=== PATIENT | male | born 1985 | race Caucasian/White ===

== ENCOUNTER → 2016-06-06 | Outpatient (CLI) | payer OTHER ==
[~2016-06-06] MED LIST: BENA25TA4 PO; COGE1INJ PO; DIVA500T9 PO; FLUO20TA PO; HALD5INJ2 PO; HALO5TA PO; HYDR10EL PO; INVE234I IM; KLON0.5T PO; KLON1TAB PO; LAMI25TA PO; NICO21PAT TD; RISP1TAB3 PO; RISP2TAB30 PO; SERO1TAB PO; TRAZ50TA2 PO; TRAZO50TA PO; WELL100T2 PO; ZYPR5TAB2 PO
--- NOTE | 2016-06-06 14:38 | PFTRPT ---
PULMONARY FUNCTION REPORT ORDERING PROVIDER: RITA Johnson DATE OF SERVICE: 06/06/16 SPIROMETRY:Excellent technical quality. The forced vital capacity is normal. The FEV1 is generally in proportion. The obstructive index is, therefore, normal. FLOW VOLUME LOOP: The expiratory limb of the flow volume loop is normal. LUNG VOLUMES: The total lung capacity is normal. The residual volume is in proportion. DIFFUSION CAPACITY: The diffusion capacity is normal. HEMOGLOBIN: No hemoglobin is available. AIRWAY MECHANICS: Airways resistance and conductance are normal. IMPRESSION: Normal study. MTDD
--- NOTE | 2016-06-06 15:28 | REP ---
CHEST: HISTORY: Cough. History of tobacco abuse. COMPARISON: 06/18/2009. FINDINGS: The superior mediastinal structures are midline. The cardiac silhouette is unremarkable in size, shape and position. The diaphragmatic surfaces of the lungs are regular and the costophrenic angles are clear. The pulmonary hernández are clear. The imaged osseous structures are intact. IMPRESSION: There is no acute cardiopulmonary disease. Signed by Chaz Alegria DO 06/06/2016 04:53 P
== END ==
LOC: M CARPUL 14:02
PROVIDERS: ATTEND Nurse Practitioner Family
DX: R05 Cough (principal); R06.02 Shortness of breath

== ENCOUNTER → 2016-06-08 | Outpatient (REF) | payer OTHER ==
[2016-06-08 12:50] LABS: ALBUMIN 3.8 GM/DL (3.2-5.2); ALBUMIN/GLOBULIN RATIO 1.31 (1.00-1.93); ALKALINE PHOSPHATASE 68 U/L (45-117); ALT/SGPT 25 U/L (12-78); ANION GAP 10 MEQ/L (8-16); AST/SGOT 19 U/L (15-37); BILIRUBIN,TOTAL 0.2 MG/DL (0.2-1.0); BLOOD UREA NITROGEN 14 MG/DL (7-18); CALCIUM LEVEL 9.2 MG/DL (8.5-10.1); CARBON DIOXIDE LEVEL 25 MEQ/L (21-32); CHLORIDE LEVEL 106 MEQ/L (98-107); CHOLESTEROL LEVEL 161 MG/DL (<200); CREATININE FOR GFR 0.98 MG/DL (0.70-1.30); GLOMERULAR FILTRATION RATE > 60.0 (>60); GLUCOSE, FASTING 94 MG/DL (70-105); POTASSIUM SERUM 4.1 MEQ/L (3.5-5.1); SODIUM LEVEL 141 MEQ/L (136-145); TOTAL PROTEIN 6.7 GM/DL (6.4-8.2); TRIGLYCERIDES LEVEL 263 MG/DL (<150)
== END ==
LOC: M LAB REF 12:05
PROVIDERS: ATTEND Nurse Practitioner Family
DX: Z13.29 Encounter for screening for other suspected endocrine disorder (principal); Z13.220 Encounter for screening for lipoid disorders; F41.8 Other specified anxiety disorders

== ENCOUNTER 2016-06-27 03:51 | Emergency (ER) | payer OTHER ==
[~2016-06-27] VITALS: Ht 172.7 cm; Wt 97.5 kg
[2016-06-27 04:06] VITALS: BP 144/95
[2016-06-27] MEDS ORDERED: FLUP10TA PO (04:13)
[2016-06-27] MEDS ORDERED: PROP1TAB29 PO (04:14)
[2016-06-27] MEDS ORDERED: MIRT30TA3 PO (04:15)
[2016-06-27] MEDS ORDERED: GABA-283 PO (04:16)
[2016-06-27] MEDS ORDERED: SERO400T PO (04:18)
== END 2016-06-27 06:00 | disposition left against medical advice (07) ==
LOC: EDBD 03:51 → M ED 05:47
DX: Z53.21 Procedure and treatment not carried out due to patient leaving prior to being seen by health care provider (principal)

== ENCOUNTER 2016-06-27 13:36 | Emergency (ER) | payer OTHER ==
[~2016-06-27] VITALS: Ht 172.7 cm; Wt 97.5 kg
[2016-06-27 13:36] VITALS: BP 135/85
[~2016-06-27 13:36] MED LIST changes: +FLUP10TA PO; +GABA-283 PO; +MIRT30TA3 PO; +PROP1TAB29 PO; +SERO400T PO
== END 2016-06-27 14:27 | disposition left against medical advice (07) ==
LOC: M ED 14:17
DX: Z53.21 Procedure and treatment not carried out due to patient leaving prior to being seen by health care provider (principal)

== ENCOUNTER 2016-06-28 17:34 | Emergency (ER) | payer OTHER ==
[~2016-06-28] VITALS: Ht 172.7 cm; Wt 96.6 kg
[2016-06-28 17:35] VITALS: BP 137/89
[2016-07-01 14:16] LABS: Lyme Disease IgG/IgM Antibodie <0.91 ISR (0.00-0.90); Lyme Disease IgM Ab Quantitati <0.80 index (0.00-0.79)
== END 2016-06-28 18:38 | disposition home or self-care (01) ==
LOC: M ED 18:16
DX: R20.2 Paresthesia of skin (principal); F25.9 Schizoaffective disorder, unspecified; F33.9 Major depressive disorder, recurrent, unspecified; F17.210 Nicotine dependence, cigarettes, uncomplicated; Z79.899 Other long term (current) drug therapy

== ENCOUNTER 2016-10-25 16:28 | Emergency (ER) | payer OTHER ==
[~2016-10-25] VITALS: Ht 172.7 cm; Wt 95.4 kg
[~2016-10-25 16:28] MED LIST changes: -RISP2TAB30 PO; +RISP2TAB32 PO
[2016-10-25 16:29] VITALS: BP 115/82
[2016-10-25] MEDS ORDERED: ATIV2TAB PO (16:44)
[2016-10-25] MEDS ORDERED: LORazepam 2 MG TAB PO STA (17:33)
[2016-10-25 18:33] LABS: BASO % 0.5 % (0.0-1.0); EOS # 0.2 K/mm3 (0.0-0.50); EOS % 3.1 % (0.0-3.0); LARGE UNSTAINED CELL # 0.1 K/mm3 (0.0-0.4); LARGE UNSTAINED CELL % 1.2 % (0.0-4.0); LYMPH # 1.8 K/mm3 (1.5-6.5); MEAN CORPUSCULAR HEMOGLOBIN 31.5 pg (27.0-33.0); MEAN CORPUSCULAR HGB CONC 34.9 g/dl (32.0-36.5); MEAN CORPUSCULAR VOLUME 90.4 fl (80.0-96.0); MONO # 0.5 K/mm3 (0.0-0.8); NEUTROPHILS # 5.2 K/mm3 (1.8-7.7); NEUTROPHILS % 67.2 % (36.0-66.0); PLATELET COUNT, AUTOMATED 253 k/mm3 (150-450); RED CELL DISTRIBUTION WIDTH 12.4 % (11.5-14.5); WHITE BLOOD COUNT 7.8 K/mm3 (4.0-10.0)
[2016-10-25 18:53] LABS: ANION GAP 8 MEQ/L (8-16); BLOOD UREA NITROGEN 13 MG/DL (7-18); CALCIUM LEVEL 8.6 MG/DL (8.5-10.1); CARBON DIOXIDE LEVEL 25 MEQ/L (21-32); CHLORIDE LEVEL 109 MEQ/L (98-107); GLOMERULAR FILTRATION RATE > 60.0 (>60); GLUCOSE, FASTING 100 MG/DL (70-105); MAGNESIUM LEVEL 2.1 MG/DL (1.8-2.4); POTASSIUM SERUM 3.8 MEQ/L (3.5-5.1); SODIUM LEVEL 142 MEQ/L (136-145)
--- NOTE | 2016-10-25 19:07 | REP ---
CHEST PA AND LATERAL: 10/25/2016. Clinical history: Left-sided chest pain. Comparison: 06/06/2016. Findings: Lungs are well inflated without infiltrate, effusion, atelectasis or mass. No lateral pleural thickening apical scarring or pneumothorax. The heart, mediastinal and hilar contours are normal. Bones are grossly unremarkable. No free air. Impression: 1. No acute cardiopulmonary change. Signed by Saul Cam MD 10/26/2016 04:49 P
--- NOTE | 2016-10-27 09:02 | ECGEPIP ---
Stationary ECG Study [facility] - ED Test Date: 2016-10-25 Pat Name: ROSALEE GIRALDO Department: Room: - Gender: M Dampener: claritza : 1985 Requested By: BATSHEVA DIAZ PA-C. Order Number: [id number] Reading MD: Jessa Michaels Measurements Intervals [place] Rate: 102 P: 36 [place]: 148 QRS: 6 QRSD: 99 T: 31 QT: 359 QTc: 469 Interpretive Statements SINUS TACHYCARDIA NONSPECIFIC T-WAVE ABNORMALITY ABNORMAL RHYTHM ECG NO PRIOR FOR COMPARISON Electronically Signed On 10-27-2016 9:02:19 EDT by Jessa Michaels
== END 2016-10-25 18:52 | disposition left against medical advice (07) ==
LOC: M ED 16:28
DX: R07.9 Chest pain, unspecified (principal); R00.0 Tachycardia, unspecified; R94.31 Abnormal electrocardiogram [ECG] [EKG]; K21.9 Gastro-esophageal reflux disease without esophagitis; F41.9 Anxiety disorder, unspecified; F17.200 Nicotine dependence, unspecified, uncomplicated; Z79.899 Other long term (current) drug therapy; Z53.21 Procedure and treatment not carried out due to patient leaving prior to being seen by health care provider

== ENCOUNTER 2017-11-20 14:34 | Emergency (ER) | payer MEDICARE, SELFPAY, OTHER ==
[2017-11-20 16:01] LABS: BASO % 0.5 % (0.0-1.0); EOS # 0.3 10^3/uL (0.0-0.50); EOS % 3.1 % (0.0-3.0); HEMATOCRIT 41.3 % (42.0-52.0); IMMATURE GRANULOCYTE % 0.2 % (0-3.0); LYMPH # 2.1 10^3/uL (1.5-4.5); LYMPH % 25.5 % (24.0-44.0); MEAN CORPUSCULAR HEMOGLOBIN 30.8 pg (27.0-33.0); MEAN CORPUSCULAR HGB CONC 33.9 g/dl (32.0-36.5); MEAN CORPUSCULAR VOLUME 90.8 fl (80.0-96.0); MONO # 0.6 10^3/uL (0.0-0.8); MONO % 7.7 % (0.0-5.0); NEUTROPHILS # 5.3 10^3/uL (1.8-7.7); PLATELET COUNT, AUTOMATED 272 10^3/uL (150-450); RED BLOOD COUNT 4.55 10^6/uL (4.30-6.10); RED CELL DISTRIBUTION WIDTH 12.5 % (11.5-14.5); WHITE BLOOD COUNT 8.3 10^3/uL (4.0-10.0)
[2017-11-20 16:12] LABS: PROTHROMBIN TIME 14.3 SECONDS (12.1-14.4)
[2017-11-20 16:34] LABS: ANION GAP 8 MEQ/L (8-16); BLOOD UREA NITROGEN 15 MG/DL (7-18); CALCIUM LEVEL 9.3 MG/DL (8.5-10.1); CARBON DIOXIDE LEVEL 28 MEQ/L (21-32); CHLORIDE LEVEL 104 MEQ/L (98-107); CPK CREATINE PHOSPHOKINASE 170 U/L (39-308); CREATININE FOR GFR 0.96 MG/DL (0.70-1.30); GLOMERULAR FILTRATION RATE > 60.0 (>60); GLUCOSE, FASTING 84 MG/DL (70-100); MB/CK RELATIVE INDEX 0.65 (< OR =4); POTASSIUM SERUM 3.8 MEQ/L (3.5-5.1); SODIUM LEVEL 140 MEQ/L (136-145); TROPONIN I < 0.02 NG/ML (< 0.10)
[2017-11-20 16:47] LABS: D-DIMER QUANT 267.4 ng/ml (<500)
[2017-11-20 16:53] LABS: FREE T4 1.06 NG/DL (0.76-1.46)
[2017-11-20 19:23] LABS: TROPONIN I < 0.02 NG/ML (< 0.10)
== END 2017-11-20 20:10 | disposition home or self-care (01) ==
LOC: M ED 14:34
DX: R07.89 Other chest pain (principal); F41.9 Anxiety disorder, unspecified; R00.1 Bradycardia, unspecified; R94.6 Abnormal results of thyroid function studies; F90.9 Attention-deficit hyperactivity disorder, unspecified type; F12.10 Cannabis abuse, uncomplicated; Z82.49 Family history of ischemic heart disease and other diseases of the circulatory system; Z79.899 Other long term (current) drug therapy
CPT/HCPCS: 71046

== ENCOUNTER → 2017-11-30 | Outpatient (REF) | payer OTHER ==
[2017-11-30 13:39] LABS: CHOLESTEROL LEVEL 164 MG/DL (<200); CHOLESTEROL RISK RATIO 3.416 (<5); HDL CHOLESTEROL 48 MG/DL (>40); LDL CHOLESTEROL 83 MG/DL (<100); NON-HDL-C 116 MG/DL; TRIGLYCERIDES LEVEL 166 MG/DL (<150)
== END ==
LOC: M LAB REF 12:47
DX: Z13.220 Encounter for screening for lipoid disorders (principal)
CPT/HCPCS: 80061

== ENCOUNTER 2018-03-24 17:09 | Emergency (ER) | payer MEDICAID, OTHER ==
[~2018-03-24] VITALS: Ht 170.2 cm; Wt 95.5 kg
[~2018-03-24 17:09] MED LIST changes: +ATIV2TAB PO; +CONC27TA4; -GABA-283 PO; +GABA-845 PO; +HYDR50TA70; -PROP1TAB29 PO; +PROP20TA72 PO
[2018-03-24] MEDS ORDERED: CLON1TAB8 (17:16)
[2018-03-24] MEDS ORDERED: FLUV100T2 (17:16)
[2018-03-24] MEDS ORDERED: RISP4TAB2 PO (17:16)
[2018-03-24 19:11] LABS: BASO # 0.1 10^3/uL (0.0-0.2); BASO % 0.5 % (0.0-1.0); EOS # 0.5 10^3/uL (0.0-0.50); EOS % 3.7 % (0.0-3.0); HEMATOCRIT 40.6 % (42.0-52.0); HEMOGLOBIN 13.5 g/dl (13.5-17.5); LYMPH # 2.5 10^3/uL (1.5-4.5); LYMPH % 20.6 % (24.0-44.0); MEAN CORPUSCULAR HEMOGLOBIN 29.8 pg (27.0-33.0); MEAN CORPUSCULAR HGB CONC 33.3 g/dl (32.0-36.5); MEAN CORPUSCULAR VOLUME 89.6 fl (80.0-96.0); MONO # 0.9 10^3/uL (0.0-0.8); MONO % 6.9 % (0.0-5.0); NEUTROPHILS # 8.3 10^3/uL (1.8-7.7); NEUTROPHILS % 67.7 % (36.0-66.0); PLATELET COUNT, AUTOMATED 245 10^3/uL (150-450); RED BLOOD COUNT 4.53 10^6/uL (4.30-6.10); WHITE BLOOD COUNT 12.3 10^3/uL (4.0-10.0)
--- NOTE | 2018-03-24 19:24 | REP ---
Clinical: Left chest numbness. Comparison: 11/20/2017 . Technique: PA and lateral. Findings: The mediastinum and cardiac silhouette are normal. The lung hernández are clear and without acute consolidation, effusion, or pneumothorax. The skeletal structures are intact and normal. Impression: 1. No acute cardiopulmonary process. Electronically Signed by Sohan Drew MD 03/24/2018 07:16 P
[2018-03-24 19:39] LABS: BLOOD UREA NITROGEN 11 MG/DL (7-18); CALCIUM LEVEL 8.7 MG/DL (8.5-10.1); CARBON DIOXIDE LEVEL 27 MEQ/L (21-32); CHLORIDE LEVEL 106 MEQ/L (98-107); CPK CREATINE PHOSPHOKINASE 170 U/L (39-308); CREATININE FOR GFR 1.03 MG/DL (0.70-1.30); GLOMERULAR FILTRATION RATE > 60.0 (>60); GLUCOSE, FASTING 84 MG/DL (70-100); MB/CK RELATIVE INDEX 0.71 (< OR =4); POTASSIUM SERUM 3.8 MEQ/L (3.5-5.1); SODIUM LEVEL 141 MEQ/L (136-145); TROPONIN I < 0.02 NG/ML (< 0.10)
[2018-03-24 20:05] VITALS: BP 135/87
--- NOTE | 2018-03-25 09:25 | ECGEPIP ---
Stationary ECG Study [facility] - ED Test Date: 2018-03-24 Pat Name: ROSALEE GIRALDO Department: Room: - Gender: M Credit Advisor: [facility] : 1985 Requested By: ANJELICA Cormier PA-C Order Number: [id number] Reading MD: Jessa Michaels Measurements Intervals [place] Rate: 105 P: 44 [place]: 173 QRS: -11 QRSD: 104 T: 15 QT: 363 QTc: 480 Interpretive Statements SINUS TACHYCARDIA ABNORMAL RHYTHM ECG NSTTW ABNORMALITY INCREASED RATE 11/20/17 Electronically Signed On 03-25-2018 9:24:54 EST by Jessa Michaels
[2018-03-27 09:57] LABS: VITAMIN B12 LEVEL 352 PG/ML (232-1245)
== END 2018-03-24 20:08 | disposition home or self-care (01) ==
LOC: M ED 17:09
DX: R20.9 Unspecified disturbances of skin sensation (principal); R00.0 Tachycardia, unspecified; F31.9 Bipolar disorder, unspecified; F25.9 Schizoaffective disorder, unspecified; Z77.098 Contact with and (suspected) exposure to other hazardous, chiefly nonmedicinal, chemicals; Z79.899 Other long term (current) drug therapy

== ENCOUNTER 2018-04-17 19:06 | Emergency (ER) | payer OTHER ==
[~2018-04-17] VITALS: Ht 170.2 cm; Wt 95.5 kg
[~2018-04-17 19:06] MED LIST changes: +CLON1TAB8; +FLUV100T2; +RISP4TAB2 PO
[2018-04-17] MEDS ORDERED: ONDANSETRON 4MG/2ML VIAL (J2405) As Ordered ONE (19:26)
[2018-04-17 20:30] VITALS: BP 118/69
== END 2018-04-17 20:45 | disposition home or self-care (01) ==
LOC: M ED 19:06
DX: F10.120 Alcohol abuse with intoxication, uncomplicated (principal); F19.10 Other psychoactive substance abuse, uncomplicated; F25.9 Schizoaffective disorder, unspecified; Z79.899 Other long term (current) drug therapy

== ENCOUNTER 2018-08-12 07:09 | Emergency (ER) | payer OTHER ==
[~2018-08-12] VITALS: Ht 170.2 cm; Wt 97.7 kg
[~2018-08-12 07:09] MED LIST changes: +NICO21DI3 TD; -NICO21PAT TD; +TRAZ1TAB6 PO; -TRAZO50TA PO
[2018-08-12] MEDS ORDERED: ANAF75CA PO (07:25)
[2018-08-12] MEDS ORDERED: BRONCHW PO (07:25)
[2018-08-12] MEDS ORDERED: LORA2CON5 PO (07:25)
[2018-08-12] MEDS ORDERED: LOXA50CA PO (07:25)
[2018-08-12] MEDS ORDERED: FISH1000 PO (07:25)
[2018-08-12] MEDS ORDERED: TEMA30CA PO (07:25)
[2018-08-12] MEDS ORDERED: ANAF50CA PO ×2 (07:25)
[2018-08-12] MEDS ORDERED: NAPROXEN 250 MG TAB PO ONE (08:30)
[2018-08-12] MEDS ORDERED: NAPR-837 PO (08:37)
[2018-08-12 08:47] VITALS: BP 130/88
== END 2018-08-12 08:49 | disposition home or self-care (01) ==
LOC: M ED 07:09 → EDBD 07:09 → M ED 08:49
DX: R20.2 Paresthesia of skin (principal); Z72.0 Tobacco use; Z79.899 Other long term (current) drug therapy

== ENCOUNTER → 2018-11-24 | Outpatient (CLI) | payer OTHER ==
[~2018-11-24] MED LIST changes: +ANAF50CA PO; +ANAF75CA PO; +BRONCHW PO; +FISH1000 PO; +LORA2CON5 PO; +LOXA50CA PO; +NAPR-837 PO; +TEMA30CA PO
[2018-11-24 10:19] LABS: BASO # 0.1 10^3/uL (0.0-0.2); BASO % 0.7 % (0.0-1.0); EOS # 0.4 10^3/uL (0.0-0.5); EOS % 3.7 % (0.0-3.0); HEMATOCRIT 42.8 % (42.0-52.0); HEMOGLOBIN 14.5 g/dl (13.5-17.5); LYMPH # 2.1 10^3/uL (1.5-5.0); LYMPH % 19.5 % (24.0-44.0); MEAN CORPUSCULAR HGB CONC 33.9 g/dl (32.0-36.5); MEAN CORPUSCULAR VOLUME 94.5 fl (80.0-96.0); MONO # 0.9 10^3/uL (0.0-0.8); MONO % 8.1 % (0.0-5.0); NEUTROPHILS # 7.1 10^3/uL (1.5-8.5); NEUTROPHILS % 67.2 % (36.0-66.0); PLATELET COUNT, AUTOMATED 281 10^3/uL (150-450); RED BLOOD COUNT 4.53 10^6/uL (4.30-6.10); WHITE BLOOD COUNT 10.5 10^3/uL (4.0-10.0)
[2018-11-24 10:54] LABS: ALBUMIN 4.2 GM/DL (3.2-5.2); ALT/SGPT 68 U/L (12-78); BILIRUBIN,TOTAL 0.4 MG/DL (0.2-1.0); BLOOD UREA NITROGEN 14 MG/DL (7-18); CALCIUM LEVEL 9.5 MG/DL (8.5-10.1); CARBON DIOXIDE LEVEL 27 MEQ/L (21-32); CHLORIDE LEVEL 101 MEQ/L (98-107); CHOLESTEROL LEVEL 188 MG/DL (<200); CHOLESTEROL RISK RATIO 3.686 (<5); GLOMERULAR FILTRATION RATE > 60.0 (>60); GLUCOSE, FASTING 84 MG/DL (70-100); HDL CHOLESTEROL 51 MG/DL (>40); LDL CHOLESTEROL 91 MG/DL (<100); NON-HDL-C 137 MG/DL; POTASSIUM SERUM 4.2 MEQ/L (3.5-5.1); SODIUM LEVEL 136 MEQ/L (136-145); TOTAL PROTEIN 7.7 GM/DL (6.4-8.2); TRIGLYCERIDES LEVEL 230 MG/DL (<150)
[2018-11-24 10:58] LABS: HEMOGLOBIN A1c 5.4 %
[2018-11-30 13:07] LABS: CLOMIPRAMINE 238 ng/mL (70-200); LORAZEPAM (ATIVAN) LEVEL 48.3 ng/mL (50.0-240.0); NORCLOMIPRAMINE 152 ng/mL (150-300); TOTAL (CLO+NORCLO) 390 ng/mL (220-500)
== END ==
LOC: M LAB 09:11
PROVIDERS: ATTEND Nurse Practitioner Psychiatric/Mental Health
DX: F25.0 Schizoaffective disorder, bipolar type (principal); F42.2 Mixed obsessional thoughts and acts; Z91.14 Patient's other noncompliance with medication regimen; Z79.899 Other long term (current) drug therapy; F12.10 Cannabis abuse, uncomplicated
CPT/HCPCS: 36415; 80053; 80061; 83036; 84443; 85025; G0480

== ENCOUNTER → 2018-12-26 | Outpatient (REF) | payer OTHER ==
[2018-12-26 19:42] LABS: HIV 1&2 SCREEN CENTAUR NEGATIVE (NEGATIVE)
[2018-12-28 10:21] LABS: HEPATITIS A ANTIBODY IGM NEGATIVE (NEGATIVE); HEPATITIS B CORE ANTIBODY IGM NEGATIVE (NEGATIVE); HEPATITIS B SURFACE ANTIGEN NEGATIVE (NEGATIVE); HEPATITIS C VIRUS ABY INDEX 0.1 INDEX (<0.8)
[2018-12-29 00:11] LABS: HSV IgM TYPES 1&2 <0.91 Ratio (0.00-0.90); HSV TYPE II IgG SPECIFIC <0.91 index (0.00-0.90)
== END ==
LOC: M LAB REF 16:23
PROVIDERS: ATTEND Family Medicine
DX: Z13.228 Encounter for screening for other metabolic disorders (principal); F10.120 Alcohol abuse with intoxication, uncomplicated; Z11.3 Encounter for screening for infections with a predominantly sexual mode of transmission

== ENCOUNTER 2020-02-16 13:25 | Emergency (ER) | payer OTHER ==
[~2020-02-16] VITALS: Ht 170.2 cm; Wt 104.9 kg
[~2020-02-16 13:25] MED LIST changes: -FLUP10TA PO; +FLUP10TA11 PO; +RISP-11 PO; -RISP4TAB2 PO
[2020-02-16 14:36] LABS: BASO % 0.5 % (0.0-1.0); EOS # 0.4 10^3/uL (0.0-0.5); EOS % 5.4 % (0.0-3.0); HEMATOCRIT 42.4 % (42.0-52.0); LYMPH # 1.6 10^3/uL (1.5-5.0); LYMPH % 20.3 % (24.0-44.0); MONO # 0.6 10^3/uL (0.0-0.8); MONO % 8.2 % (0.0-5.0); NEUTROPHILS # 5.1 10^3/uL (1.5-8.5); NEUTROPHILS % 65.3 % (36.0-66.0); PLATELET COUNT, AUTOMATED 267 10^3/uL (150-450); RED BLOOD COUNT 4.66 10^6/uL (4.30-6.10); WHITE BLOOD COUNT 7.8 10^3/uL (4.0-10.0)
[2020-02-16 15:06] LABS: ALBUMIN 4.3 GM/DL (3.2-5.2); ALT/SGPT 74 U/L (12-78); BILIRUBIN,DIRECT 0.2 MG/DL (0.0-0.2); BILIRUBIN,TOTAL 0.4 MG/DL (0.2-1.0); BLOOD UREA NITROGEN 13 MG/DL (7-18); CALCIUM LEVEL 9.8 MG/DL (8.5-10.1); CARBON DIOXIDE LEVEL 27 MEQ/L (21-32); CHLORIDE LEVEL 103 MEQ/L (98-107); GLOMERULAR FILTRATION RATE > 60.0 (>60); GLUCOSE, FASTING 99 MG/DL (70-100); MAGNESIUM LEVEL 2.1 MG/DL (1.8-2.4); POTASSIUM SERUM 3.9 MEQ/L (3.5-5.1); SODIUM LEVEL 139 MEQ/L (136-145); TOTAL PROTEIN 7.9 GM/DL (6.4-8.2)
--- NOTE | 2020-02-16 15:38 | REP ---
INDICATION: numbness left face/shoulder COMPARISON: 04/18/2013 TECHNIQUE: Axial noncontrast images from the skull base to the vertex with coronal reformations. This CT examination was performed using the following dose reduction techniques: Automated exposure control, adjustment of mA and/or kv according to the patient's size, and use of iterative reconstruction technique. FINDINGS: The ventricles, sulci, and cisterns are normal in position and appearance. Oliver-white differentiation is maintained. No acute intracranial hemorrhage, mass/mass effect, pathology or trauma/injury. No evidence for acute infarction. No extra-axial fluid collection. Calvarium is intact. Paranasal sinuses and mastoid air cells are clear. IMPRESSION: Normal noncontrast head CT. No evidence for acute intracranial pathology or trauma/injury. <Electronically signed by Sohan Drew > 02/16/20 [id number]
[2020-02-16 16:26] VITALS: BP 132/83
--- NOTE | 2020-02-16 19:05 | ECGEPIP ---
[facility] - ED Test Date: 2020-02-16 Pat Name: ROSALEE GIRALDO Department: Room: - Gender: Male Drum Tender: faustino : 1985 Requested By: BATSHEVA DIAZ PA-C. Order Number: [id number] Reading MD: Jessa Michaels Measurements Intervals [place] Rate: 59 P: 36 [place]: 147 QRS: 3 QRSD: 100 T: -2 QT: 424 QTc: 423 Interpretive Statements SINUS BRADYCARDIA WITH MARKED SINUS ARRHYTHMIA DECREASED RATE 03/24/18 Electronically Signed on 02-16-2020 19:05:29 EST by Jessa Michaels
[2020-02-17 13:24] LABS: FOLATE > 24.0 NG/ML (>5.4); VITAMIN B12 LEVEL 594 PG/ML (247-911)
== END 2020-02-16 16:30 | disposition home or self-care (01) ==
LOC: M ED 13:25
DX: R00.1 Bradycardia, unspecified (principal); R51.9 Headache, unspecified; F10.20 Alcohol dependence, uncomplicated; M79.2 Neuralgia and neuritis, unspecified; F41.9 Anxiety disorder, unspecified; F20.9 Schizophrenia, unspecified; Z79.899 Other long term (current) drug therapy

== ENCOUNTER 2020-03-29 14:05 | Emergency (ER) | payer OTHER ==
[~2020-03-29] VITALS: Ht 170.2 cm; Wt 103.1 kg
--- OUTSIDE RECORDS SUMMARY | 2020-03-29 14:10 | CCD ---
Author Organization Unknown Address [address] [place] [address] Phone [phone] Care Team Providers Care Process Safety Engineering Technologist Name Role Phone My Reyes Unavailable Unavailable Allergies None recorded. Medications Name Status Start Date Stop Date aripiprazole 10 mg tablet Active Not av ailable clomipramine 50 mg capsule TAKE ONE CAPSULE BY MOUTH EVERY DAY FOR 7 DAYS THEN TAKE TWO CAPSULES BY MOUTH EVERY DAY Active Not available clomipramine 75 mg capsule Active Not a vailable dextroamphetamine-amphetamine 20 mg tablet Active Not available dextroamphetamine-amphetamine 30 mg tablet Active Not available diclofenac 1 % topical gel Active Not a vailable fluoxetine 20 mg capsule Active Not sagar ilable gabapentin 300 mg capsule Active Not av ailable hydroxyzine pamoate 25 mg capsule Active Not available hydroxyzine pamoate 50 mg capsule Active Not available lamotrigine 100 mg tablet TAKE ONE HALF TABLET BY MOUTH EVERY DAY FOR 14 DAYS THEN 1 TABLET ONCE DAILY THEREAFTER Active Not available lamotrigine 25 mg tablet Active Not sagar ilable lorazepam 0.5 mg tablet Active Not avai lable lorazepam 1 mg tablet Active Not availa ble lorazepam 2 mg tablet Active Not availa ble methocarbamol 500 mg tablet Active Not available olanzapine 10 mg tablet Active Not avai lable olanzapine 15 mg tablet Active Not avai lable olanzapine 20 mg tablet Active Not avai lable olanzapine 5 mg tablet Active Not avail able quetiapine 100 mg tablet Active Not sagar ilable sertraline 50 mg tablet TAKE ONE TABLET BY MOUTH EVERY DAY Active Not available temazepam 15 mg capsule Active Not avai lable Vyvanse 70 mg capsule Active Not availa ble Problems Name Status Onset Date Source Simple Goiter Active 05/24/2016 History Simple Obesity Active 05/24/2016 History Body Mass Index 30+ - Obesity Active 05/24/2016 Hi story Paranoid Schizophrenia Active 05/24/2016 History Dyspnea Active 05/24/2016 History Cough Active 05/24/2016 History Endocrine/metabolic Screening Active 05/24/2016 Hi story Tobacco Use and Exposure - Finding Active 05/24/2016 History Exposure to Second Hand Tobacco Smoke Active 05/24/2016 History Procedure by Method Active 05/24/2016 History Emotional State Finding Active 05/24/2016 History Auditory Hallucinations Active 05/24/2016 History Evaluation Procedure Active 05/24/2016 History Chest Pain Active 07/12/2016 History Thyroid Function Tests Abnormal Active 2017 History Cardiovascular Measurement - Finding Active 2017 History Alcohol Abuse Active 11/20/2018 History Syphilis Test Finding Active 11/20/2018 History Procedures Notes: double hernia, age 5 Results Lab Results Date Name Specimen Result Interpretation Description Value Range Status Address 03/09/2020 SARS CoV 2 RdRp Gene, QL Probe, Respirat ory Specimen Nose (nasal passage) Normal Sars-cov-2 negative negative Final [facility]: [address] [place] [address] Past Encounters 03/09/2020 Exposure to SARS-CoV-2 Benitez Fernando MD: [address] [place] [phone], Ph. Social History None recorded. Vaccine List Vaccine Type Tdap 04/27/2006 Plan of Care Reminders Provider Appointments None recorded. Lab None recorded. Referral None recorded. Procedures None recorded. Surgeries None recorded. Imaging None recorded. Vitals Height Weight Blood Pressure 67.5 in 227 lbs 8 oz 147/95 mm[Hg]
--- OUTSIDE RECORDS SUMMARY | 2020-03-29 14:10 | CCD ---
Author Author Rolo Hess Organization Unknown Address [address] [address] Phone Care Team Providers Care Forklift Wheel Loader Name Role Phone Leroy Hess PCP Allergies, Adverse Reactions, Alerts No Data in Section Problem List Concept Problem Description Status Start Date Created Date Resolv ed Date Snomed Code F42.2 Obsessive-Compulsive Disorder Active 08/03/2015 6 F25.0 Schizoaffective Disorder, Bipolar type Active 06/05/2015 06/05/2015 F12.10 Cannabis Use Disorder, Mild Active 11/20/2018 11/20/2018 F17.210 Nicotine dependence, cigarettes, uncomplicated Active 03/12/2020 Medications No Data in Section Social History Social History Element Description Concept Effective Date Smoking Status Current every day smoker [id number] 4 Immunizations No Data in Section Vital Signs No Data in Section Procedures Date Concept Id Description Targeted Site Concept Targeted Site Concept Type 03/09/2020 58957 TEMP Phone E/M; 01-16" CP T Patient has no history of implantable de vices Encounters Encounter Start Date End Date Encounter Type Description Diagnosis Di agnosis Desc Location Author First Name Author Last Name Npid Taxonomy Cod e Taxonomy Desc Phone Number Location Addr1 Location Addr2 Location [facility] Location Sta Location [facility] [id number] 03/09/2020 03/09/2020 48486 TEMP Phone E/M; 11" F42.2 Obsessive- compulsive disorder [facility] Deshawn Harper [id number] [id number] Nurse Practitioner [phone] [address] [address] Plan of Treatment No Data in Section Lab Results No Data in Section Instructions No Data in Section Insurance Providers Insurance Id Policy Effective Date Policy Thru Date Company N manjula [id number] 2017 [employer] Choice PP O- Medicare
--- OUTSIDE RECORDS SUMMARY | 2020-03-29 14:10 | CCD ---
Author Author Rolo Hess Organization Unknown Address [address] [address] Phone Care Team Providers Care Fairground Operator Name Role Phone Leroy Hess PCP Allergies, Adverse Reactions, Alerts No Data in Section Problem List Concept Problem Description Status Start Date Created Date Resolv ed Date Snomed Code F42.2 Obsessive-Compulsive Disorder Active 08/03/2015 6 F25.0 Schizoaffective Disorder, Bipolar type Active 06/05/2015 06/05/2015 F12.10 Cannabis Use Disorder, Mild Active 11/20/2018 11/20/2018 F17.210 Nicotine dependence, cigarettes, uncomplicated Active 03/03/2020 Medications No Data in Section Social History Social History Element Description Concept Effective Date Smoking Status Current every day smoker [id number] 5 Immunizations No Data in Section Vital Signs Encounter Date Height Ins Weight Lbs Bmi Bp Systolic Bp Diastoli c Oxygen Saturation Respiration Rate Pulse Rate Body Temp Head Circumference Heigh t Lying 03/03/2020 0.00 0.00 0.00 0 0 0.00 0 0 0.00 0.0 0.0 0 Procedures Date Concept Id Description Targeted Site Concept Targeted Site Concept Type 03/03/2020 19444-82 [facility] Telemed E/M Lvl 3--Est pt CPT 03/03/2020 73990-81 Telemed A/O 30" CPT Patient has no history of implantable de vices Encounters Encounter Start Date End Date Encounter Type Description Diagnosis Di agnosis Desc Location Author First Name Author Last Name Npid Taxonomy Cod e Taxonomy Desc Phone Number Location Addr1 Location Addr2 Location [facility] Location [facility] Location [facility] [id number] 03/03/2020 03/03/2020 25511-41 [facility] Telemed E/M Lvl 3--Est p t F42.2 Obsessive-compulsive disorder [facility] Deshawn Harper [id number] [id number] Nurse Practitioner [phone] [address] [place] [address] Plan of Treatment No Data in Section Lab Results No Data in Section Instructions No Data in Section Functional Cognitive Status No Data in Section Insurance Providers Insurance Id Policy Effective Date Policy Thru Date Company N manjula [id number] 2017 [employer] Choice PP O- Medicare
--- OUTSIDE RECORDS SUMMARY | 2020-03-29 14:10 | CCD ---
Author Author Rolo Hess Organization Unknown Address [address] [address] Phone Care Team Providers Care Internet Webmaster Name Role Phone Leroy Hess PCP Allergies, Adverse Reactions, Alerts No Data in Section Problem List Concept Problem Description Status Start Date Created Date Resolv ed Date Snomed Code F42.2 Obsessive-Compulsive Disorder Active 08/03/2015 6 F25.0 Schizoaffective Disorder, Bipolar type Active 06/05/2015 06/05/2015 F12.10 Cannabis Use Disorder, Mild Active 11/20/2018 11/20/2018 F17.210 Nicotine dependence, cigarettes, uncomplicated Active 03/24/2020 Medications No Data in Section Social History Social History Element Description Concept Effective Date Smoking Status Current every day smoker [id number] 6 Immunizations No Data in Section Vital Signs Encounter Date Height Ins Weight Lbs Bmi Bp Systolic Bp Diastoli c Oxygen Saturation Respiration Rate Pulse Rate Body Temp Head Circumference Heigh t Lying 03/24/2020 0.00 0.00 0.00 0 0 0.00 0 0 0.00 0.0 0.0 0 Procedures Date Concept Id Description Targeted Site Concept Targeted Site Concept Type 03/24/2020 59252-16 [facility] Telemed E/M Lvl 3--Est pt CPT 03/24/2020 54638-32 Telemed A/O 30" CPT Patient has no history of implantable de vices Encounters Encounter Start Date End Date Encounter Type Description Diagnosis Di agnosis Desc Location Author First Name Author Last Name Npid Taxonomy Cod e Taxonomy Desc Phone Number Location Addr1 Location Addr2 Location [facility] Location [facility] Location [facility] [id number] 03/24/2020 03/24/2020 25986-14 [facility] Telemed E/M Lvl 3--Est p t F42.2 Obsessive-compulsive disorder [facility] Deshawn Harper [phone] [id number] Nurse Practitioner [phone] [address] [place] [address] Plan of Treatment No Data in Section Lab Results No Data in Section Instructions No Data in Section Functional Cognitive Status No Data in Section Insurance Providers Insurance Id Policy Effective Date Policy Thru Date Company N manjula [id number] 2017 [employer] Choice PP O- Medicare
--- OUTSIDE RECORDS SUMMARY | 2020-03-29 14:10 | CCD ---
Author Author Rolo Hess Leroy Organization Unknown Address [address] [place] [phone] Phone Care Team Providers Care Mail Processing Associate Name Role Phone Leroy Hess PCP Allergies, Adverse Reactions, Alerts No Data in Section Problem List Concept Problem Description Status Start Date Created Date Resolv ed Date Snomed Code F42.2 Obsessive-Compulsive Disorder Active 08/03/2015 6 F20.0 Paranoid schizophrenia Active 08/03/2015 08/03/2015 F25.0 Schizoaffective Disorder, Bipolar type Active 06/05/2015 06/05/2015 F90.2 Attention-Deficit/Hyperactivity Disorder, Combin ed presentation Active 08/03/2015 08/03/2015 F12.10 Cannabis Use Disorder, Mild Active 11/20/2018 11/20/2018 F17.210 Nicotine dependence, cigarettes, uncomplicated Active 01/31/2020 Medications Rx Norm Medication Route Route Concept Start Date Stop Date Dosage Rashad quency Duration Formula Strength Dosage Form Dosage Form Code Dosage Description Medication Id Account Npid Author First Name Author Last Name Taxonomy Code Taxonomy Desc Phone Number [id number] nicotine to skin 11/25/2019 02/23/2020 once a day 30 14 mg/24 hr patch 24 hour [phone] Jessica Richmond [id number] Psychiatric/Mental Health [id number] Social History Social History Element Description Concept Effective Date Smoking Status Current every day smoker [id number] 4 Immunizations No Data in Section Vital Signs Encounter Date Height Ins Weight Lbs Bmi Bp Systolic Bp Diastoli c Oxygen Saturation Respiration Rate Pulse Rate Body Temp Head Circumference Heigh t Lying 01/31/2020 0.00 0.00 0.00 0 0 0.00 0 0 0.00 0.0 0.0 0 Procedures Date Concept Id Description Targeted Site Concept Targeted Site Concept Type 01/31/2020 25368-27 [facility] Telemed E/M Lvl 3--Est pt CPT 01/31/2020 85356-07 Telemed A/O 30" CPT Patient has no history of implantable de vices Encounters Encounter Start Date End Date Encounter Type Description Diagnosis Di agnosis Desc Location Author First Name Author Last Name Npid Taxonomy Cod e Taxonomy Desc Phone Number Location Addr1 Location Addr2 Location [facility] Location Sta te Location [facility] [id number] 01/31/2020 01/31/2020 75122-49 [facility] Telemed E/M Lvl 3--Est p t F42.2 Obsessive-compulsive disorder [facility] Deshawn Harper [phone] [id number] Nurse Practitioner [phone] [address] [place] [address] Plan of Treatment No Data in Section Lab Results No Data in Section Instructions No Data in Section Functional Cognitive Status No Data in Section Insurance Providers Insurance Id Policy Effective Date Policy Thru Date Big Contacts Lyndsey fair [id number] 2017 [employer] Choice PP O- Medicare
--- OUTSIDE RECORDS SUMMARY | 2020-03-29 14:10 | CCD ---
Author Author [facility] Organization [facility] Address Unknown Phone Unavailable Care Team Providers Care Production Supervisor Trainee Name Role Phone Evy Fernando MD Unavailable Unavailable Evy Fernando MD Unavailable Unavailable Evy Fernando MD Unavailable Unavailable Evy Fernando MD Unavailable Unavailable Evy Fernando MD Unavailable Unavailable Evy Fernando MD Unavailable Unavailable Evy Fernando MD Unavailable Unavailable Evy Fernando MD Unavailable Unavailable Evy Fernando MD Unavailable Unavailable Evy Fernando MD Unavailable Unavailable Evy Fernando MD Unavailable Unavailable Evy Fernando MD Unavailable Unavailable Evy Fernando MD Unavailable Unavailable Evy Fernando MD Unavailable Unavailable Evy Fernando MD Unavailable Unavailable Evy Fernando MD Unavailable Unavailable Evy Fernando MD Unavailable Unavailable Evy Fernando MD Unavailable Unavailable Evy Fernando MD Unavailable Unavailable Evy Fernando MD Unavailable Unavailable Evy Fernando MD Unavailable Unavailable Evy Fernando MD Unavailable Unavailable Evy Fernando MD Unavailable Unavailable Evy Fernando MD Unavailable Unavailable Evy Fernando MD Unavailable Unavailable Evy Fernando MD Unavailable Unavailable Evy Fernando MD Unavailable Unavailable Evy Fernando MD Unavailable Unavailable Evy Fernando MD Unavailable Unavailable Evy Fernando MD Unavailable Unavailable Evy Fernando MD Unavailable Unavailable Evy Fernando MD Unavailable Unavailable Evy Fernando MD Unavailable Unavailable Evy Fernando MD Unavailable Unavailable Evy Fernando MD Unavailable Unavailable Evy Fernando MD Unavailable Unavailable Evy Fernando MD Unavailable Unavailable Evy Fernando MD Unavailable Unavailable Evy Fernando MD Unavailable Unavailable Evy Fernando MD Unavailable Unavailable Evy Fernando MD Unavailable Unavailable Evy Fernando MD Unavailable Unavailable Evy Fernando MD Unavailable Unavailable Evy Fernando MD Unavailable Unavailable Evy Fernando MD Unavailable Unavailable Evy Fernando MD Unavailable Unavailable Evy Fernando MD Unavailable Unavailable Evy Fernando MD Unavailable Unavailable Evy Fernando MD Unavailable Unavailable Evy Fernando MD Unavailable Unavailable Evy Fernando MD Unavailable Unavailable Evy Fernando MD Unavailable Unavailable Evy Fernando MD Unavailable Unavailable Evy Fernando MD Unavailable Unavailable Evy Fernando MD Unavailable Unavailable Evy Fernando MD Unavailable Unavailable Evy Fernando MD Unavailable Unavailable Evy Fernando MD Unavailable Unavailable Evy Fernando MD Unavailable Unavailable Evy Fernando MD Unavailable Unavailable Evy Fernando MD Unavailable Unavailable Eyv Fernando MD Unavailable Unavailable Evy Fernando MD Unavailable Unavailable Evy Fernando MD Unavailable Unavailable Evy Fernando MD Unavailable Unavailable Evy Fernando MD Unavailable Unavailable Evy Fernando MD Unavailable Unavailable Evy Fernando MD Unavailable Unavailable Evy Fernando MD Unavailable Unavailable Evy Fernando MD Unavailable Unavailable Evy Fernando MD Unavailable Unavailable Evy Fernando MD Unavailable Unavailable Evy Fernando MD Unavailable Unavailable Evy Fernando MD Unavailable Unavailable Evy Fernando MD Unavailable Unavailable Evy Fernando MD Unavailable Unavailable Evy Fernando MD Unavailable Unavailable Evy Fernando MD Unavailable Unavailable Evy Fernando MD Unavailable Unavailable Evy Fernando MD Unavailable Unavailable Evy Fernando MD Unavailable Unavailable Evy Fernando MD Unavailable Unavailable Evy Fernando MD Unavailable Unavailable Evy Fernando MD Unavailable Unavailable Evy Fernando MD Unavailable Unavailable Evy Fernando MD Unavailable Unavailable Evy Fernando MD Unavailable Unavailable Evy Fernando MD Unavailable Unavailable Evy Fernando MD Unavailable Unavailable Ciales, C Travis Unavailable Unavailable Melita, C Travis Unavailable Unavailable Melita, C Travis Unavailable Unavailable Melita, C Travis Unavailable Unavailable Melita, C Travis Unavailable Unavailable Ciales, C Travis Unavailable Unavailable Ciales, C Travis Unavailable Unavailable Yi, Yesy LovelaceJessica [employer] Unavailable Unavailable [place], K Jessica [employer] EXPERT HOME THEATER Unavailable Unavailable Yi, K Jessica [employer] EXPERT HOME THEATER Unavailable Unavailable Yi, K Jessica [employer] EXPERT HOME THEATER Unavailable Unavailable [place], K Jessica [employer] EXPERT HOME THEATER Unavailable Unavailable Yi, K Jessica [employer] EXPERT HOME THEATER Unavailable Unavailable Herlinda PACE MD Unavailable Unavailable Herlinda PACE MD Unavailable Unavailable Herlinda PACE MD Unavailable Unavailable Herlinda PACE MD Unavailable Unavailable Herlinda PACE MD Unavailable Unavailable Herlinda PACE MD Unavailable Unavailable Herlinda PACE MD Unavailable Unavailable Herlinda PACE MD Unavailable Unavailable Herlinda PACE MD Unavailable Unavailable Herlinda PACE MD Unavailable Unavailable Herlinda PACE MD Unavailable Unavailable Herlinda PACE MD Unavailable Unavailable Herlinda PACE MD Unavailable Unavailable Herlinda PACE MD Unavailable Unavailable Herlinda PACE MD Unavailable Unavailable Herlinda PACE MD Unavailable Unavailable Herlinda PACE MD Unavailable Unavailable Herlinda PACE MD Unavailable Unavailable Herlinda PACE MD Unavailable Unavailable Herlinda PACE MD Unavailable Unavailable Herlinda PACE MD Unavailable Unavailable Herlinda PACE MD Unavailable Unavailable Herlinda PACE MD Unavailable Unavailable Herlinda PACE MD Unavailable Unavailable Herlinda PACE MD Unavailable Unavailable Herlinda PACE MD Unavailable Unavailable Herlinda PACE MD Unavailable Unavailable Herlinda PACE MD Unavailable Unavailable Herlinda PACE MD Unavailable Unavailable Herlinda PACE MD Unavailable Unavailable Herlinda PACE MD Unavailable Unavailable Herlinda PACE MD Unavailable Unavailable Herlinda PACE MD Unavailable Unavailable Herlinda PACE MD Unavailable Unavailable Herlinda PACE MD Unavailable Unavailable Herlinda PACE MD Unavailable Unavailable Herlinda PACE MD Unavailable Unavailable Herlinda PACE MD Unavailable Unavailable Herlinda PACE MD Unavailable Unavailable Herlinda PACE MD Unavailable Unavailable Herlinda PACE MD Unavailable Unavailable Herlinda PACE MD Unavailable Unavailable Herlinda PACE MD Unavailable Unavailable Herlinda PACE MD Unavailable Unavailable Herlinda PACE MD Unavailable Unavailable Herlinda PACE MD Unavailable Unavailable GEOFFREY, Herlinda HAILE MD Unavailable Unavailable GEOFFREY, Herlinda HAILE MD Unavailable Unavailable GEOFFREY, Herlinda HAILE MD Unavailable Unavailable GEOFFREY, T LAZARA FRANCOIS Unavailable Unavailable GEOFFREY, T LAZARA FRANCOIS Unavailable Unavailable GEOFFREY, Herlinda HAILE MD Unavailable Unavailable GEOFFREY, Herlinda HAILE MD Unavailable Unavailable GEOFFREY, Herlinda HAILE MD Unavailable Unavailable GEOFFREY, Herlinda HAILE MD Unavailable Unavailable GEOFFREY, Herlinda HAILE MD Unavailable Unavailable GEOFFREY, Herlinda HAILE MD Unavailable Unavailable GEOFFREY, Herlinda HAILE MD Unavailable Unavailable GEOFFERY, Herlinda HAILE MD Unavailable Unavailable GEOFFREY, Herlinda HAILE MD Unavailable Unavailable GEOFFREY, Herlinda HAILE MD Unavailable Unavailable GEOFFREY, Herlinda HAILE MD Unavailable Unavailable GEOFFREY, T LAZARA FRANCOIS Unavailable Unavailable GEOFFREY, T LAZARA FRANCOIS Unavailable Unavailable GEOFFREY, T LAZARA FRANCOIS Unavailable Unavailable GEOFFREY, Herlinda HAILE MD Unavailable Unavailable GEOFFREY, Herlinda HAILE MD Unavailable Unavailable GEOFFREY, Herlinda HAILE MD Unavailable Unavailable GEOFFREY, Herlinda HAILE MD Unavailable Unavailable GEOFFREY, Herlinda HAILE MD Unavailable Unavailable GEOFFREY, Herlinda HAILE MD Unavailable Unavailable GEOFFREY, Herlinda HAILE MD Unavailable Unavailable GEOFFREY, Herlinda HAILE MD Unavailable Unavailable GEOFFREY, Herlinda HAILE MD Unavailable Unavailable GEOFFREY, Herlinda HAILE MD Unavailable Unavailable GEOFFREY, Herlinda HAILE MD Unavailable Unavailable GEOFFREY, T LAZARA FRANCOIS Unavailable Unavailable GEOFFREY, T LAZARA FRANCOIS Unavailable Unavailable GEOFFREY, T LAZARA FRANCOIS Unavailable Unavailable GEOFFREY, Herlinda HAILE MD Unavailable Unavailable GEOFFREY, Herlinda HAILE MD Unavailable Unavailable GEOFFREY, Herlinda HAILE MD Unavailable Unavailable GEOFFREY, Herlinda HAILE MD Unavailable Unavailable Naida Hess NP Unavailable Unavailable Re-disclosure Warning The records that you are about to access may contain information from federally-assisted alcohol or drug abuse programs. If such information is present, then the following federally mandated warning applies: This information has been disclosed to you from records protected by federal confidentiality rules (42 CFR part 2). The federal rules prohibit you from making any further disclosure of this information unless further disclosure is expressly permitted by the written consent of the person to whom it pertains or as otherwise permitted by 42 CFR part 2. A general authorization for the release of medical or other information is NOT sufficient for this purpose. The Federal rules restrict any use of the information to criminally investigate or prosecute any alcohol or drug abuse patient.The records that you are about to access may contain highly sensitive health information, the redisclosure of which is protected by Article 27-F of the [place] Public [employer] law. If you continue you may have access to information: Regarding HIV / AIDS; Provided by facilities licensed or operated by the [place] Office of Mental Health; or Provided by the [place] Office for People With Developmental Disabilities. If such information is present, then the following [place] mandated warning applies: This information has been disclosed to you from confidential records which are protected by state law. State law prohibits you from making any further disclosure of this information without the specific written consent of the person to whom it pertains, or as otherwise permitted by law. Any unauthorized further disclosure in violation of state law may result in a fine or fci sentence or both. A general authorization for the release of medical or other information is NOT sufficient authorization for further disc losure. Allergies and Adverse Reactions Type Description Substance Reaction Status Data Source(s ) Allergy to substance Allergy to substance Allergy to substance [facility]ON ([facility]) Family History Family Member Name Family Member Gender Family Member Status Date o f Status Description Data Source(s) Unknown Male Problem MEDENT ([facility]) Unknown Unknown Problem MEDENT ([facility]) Encounters Encounter Providers Location Date Indications Data Source(s ) [facility] 02:30:00 AM EST - 03/24/2020 02:30:00 AM EST [facility] ([facility]) Attender: Leroy Hess NP 03/24/2020 12:00:00 AM EST [facility] ([facility]) Attender: Leroy Hess NP 03/12/2020 12:00:00 AM EST [facility] ([facility]) TEMP Phone E/M; 11-20" Attender: Leroy Hess NP [facility] 03/09/2020 03:00:00 AM EST - 03/09/2020 03:00:00 AM EST [facility] ([facility]) Benitez Fernando MD: [address] [place] [phone], Ph. Attender: Benitez Fernando MD [place] - [facility] Medical 03/09/2020 12:00:00 AM EST [facility]ENNIFER ([facility]) Outpatient Attender: Leroy Hess NP [facility] 03/03/2020 02:00:00 AM EST - 03/03/2020 02:00:00 AM EST [facility] ([facility]) Attender: Leroy Hess NP 03/03/2020 12:00:00 AM EST [facility] ([facility]) Outpatient Attender: Leroy Hess NP [facility] 01/31/2020 02:00:00 AM EST - 01/31/2020 02:00:00 AM EST [facility] ([facility]) Attender: Leroy Hess NP 01/31/2020 12:00:00 AM EST [facility] ([facility]) Outpatient Attender: Leroy Hess NP [facility] 01/10/2020 01:00:00 AM EST - 01/10/2020 01:00:00 AM EST [facility] ([facility]) Attender: Leroy Hess NP 01/10/2020 12:00:00 AM EST [facility] ([facility]) Outpatient Attender: LAZARA PACE MD 11/27/2019 12:02:13 A M EDT [facility] Outpatient Attender: LAZARA PACE MD 11/26/2019 08:59:00 A M EDT [facility] Outpatient Attender: Jessica Richmond [facility]-SAL[employer] EX[employer] HOME THE[employer] [facility] 11/25/2019 03:00:00 AM EDT - 11/25/2019 03:00:00 AM EDT [facility] ([facility]) Attender: Jessica BOYD-[employer] EX[employer] HOME THEATER 11/25/2019 12: 00:00 AM EDT [facility] ([facility]) Outpatient Attender: LAZARA PACE MD [facility]: [facility] PACE MD 10/11/2019 08:01:08 P M EDT [facility] Outpatient Attender: Jessica [facility]ELA [facility] 08/26/2019 11:30:00 AM EDT - 08/26/2019 11:30:00 AM EDT [facility] ([facility]) Attender: Jessica ORTEGA 08/26/2019 12: 00:00 AM EDT [facility] ([facility]) Outpatient Attender: Jessica [facility]DDANIELA [facility] 07/11/2019 03:00:00 AM EDT - 07/11/2019 03:00:00 AM EDT [facility] ([facility]) Attender: Jessica ORTEGA 07/11/2019 12: 00:00 AM EDT [facility] ([facility]) Outpatient Attender: Jessica ORTEGA [facility] 05/27/2019 01:00:00 AM EDT - 05/27/2019 01:00:00 AM EDT [facility] ([facility]) Attender: Jessica BOYDDANIELA 05/27/2019 12: 00:00 AM EDT [facility] ([facility]) Outpatient Attender: Travis Sutherlandling [facility] 0 05/09/2019 02:00:00 AM EDT - 05/09/2019 02:00:00 AM EDT [facility] ([facility] Attender: Travis Hua 05/09/2019 12:00:00 AM EDT [facility] ([facility]) Outpatient Attender: Travis Hua [facility] 0 05/02/2019 02:00:00 AM EST - 05/02/2019 02:00:00 AM EST [facility] ([facility]) Attender: Travis Hua 05/02/2019 12:00:00 AM EST [facility] ([facility]) Outpatient Attender: Travis [facility] 0 04/24/2019 01:30:00 AM EST - 04/24/2019 01:30:00 AM EST [facility] Attender: Travis Hua 04/24/2019 12:00:00 AM EST [facility] ([facility]) Outpatient Attender: LAZARA PACE MD 04/19/2019 08:01:24 P M [facility] Outpatient Attender: LAZARA PACE MD 04/12/2019 08:01:53 P M [facility] Outpatient Attender: Travis Hua [facility] 0 04/11/2019 10:30:00 AM EST - 04/11/2019 10:30:00 AM EST [facility] ([facility]) Attender: Travis Hua 04/11/2019 12:00:00 AM EST [facility] ([facility]) Outpatient Attender: Travis Hua [facility] 0 03/14/2019 02:30:00 AM EST - 03/14/2019 02:30:00 AM EST [facility] ([facility]) Attender: Travis Hua 03/14/2019 12:00:00 AM EST [facility] ([facility]) Outpatient Attender: Travis Hua [facility] 1 04/18/2018 02:30:00 AM EST - 02/15/2019 02:30:00 AM EST [facility] ([facility]) Attender: Travis Hua 02/15/2019 12:00:00 AM EST [facility] ([facility]) Outpatient Attender: Travis Hua [facility] 1 04/07/2018 03:30:00 AM EST - 02/04/2019 03:30:00 AM EST [facility] ([facility] Attender: Travis Hua 02/04/2019 12:00:00 AM EST [facility] ([facility]) Functional Status Medications Medication Brand Name Start Date Product Form Dose Route Admi nistrative Instructions Pharmacy Instructions Status Indications Reaction Description Data Source(s) quetiapine 200 MG Oral Tablet QUETIAPINE FUMARATE 03/10/2020 12: 00:00 AM EST tablet 30 TAKE ONE TABLET BY MOUTH AT BEDT SHIRLEY TAKE ONE TABLET BY MOUTH AT BEDTIME SOLD: 03/16/2020 [facility] 50 mg 03/04/2020 12:00:00 AM EST tablet 30 TAKE ONE TABLET BY MOUTH EVERY DAY TAKE ONE TABLET BY MOUTH EVERY DAY SOLD: 03/04/2020 [facility] 100 mg 02/01/2020 12:00:00 AM EST tablet 30 TAKE ONE-HALF TABLET BY MOUTH EVERY DAY FOR 14 DAYS THEN 1 TABLET ONCE DAILY THEREAFTER TAKE ONE-HALF TABLET BY MOUTH EVERY DAY FOR 14 DAYS THEN 1 TABLET ONCE DAILY THEREAFTER SOLD: 02/01/2020 [facility] 500 mg 01/20/2020 12:00:00 AM EST tablet 80 TAKE TWO TABLETS BY MOUTH FOUR TIMES A DAY NEEDED FOR PAIN FOR 10 DAYS TAKE TWO TABLETS BY MOUTH FOUR TIMES A DAY NEEDED FOR PAIN FOR 10 DAYS SOLD: 01/20/2020 [facility] 1 % 01/20/2020 12:00:00 AM EST gel 100 APPLY 2 GM TOPICALLY FOUR TIMES A DAY NEEDED FOR PAIN FOR 10 DAYS APPLY 2 GM TOPICALLY FOUR TIMES A DAY NEEDED FOR PAIN FOR 10 DAYS SOLD: 01/20/2020 [facility] 50 mg 01/11/2020 12:00:00 AM EST capsule 53 TAKE ONE CAPSULE BY MOUTH EVERY DAY FOR 7 DAYS THEN TAKE TWO CAPSULES BY MOUTH EVERY DAY TAKE ONE CAPSULE BY MOUTH EVERY DAY FOR 7 DAYS THEN TAKE TWO CAPSULES BY MOUTH EVERY DAY SOLD: 01/11/2020 [facility] olanzapine 5 MG Oral Tablet olanzapine 11/25/2019 12:00:00 AM EDT 5 mg by mouth completed [id number] olanzapine by mouth [id number] 2019 once a day 5 mg tablet 66014 [id number] Jessica Richmond [id number] [facility] ([facility]) 24 HR Nicotine 0.583 MG/HR Transdermal Patch nicotine 11/25/2019 12:00:00 AM EDT 14 mg/24 completed [id number] nicotine to skin 11/25/2019 02/23/2020 once a day 30 14 mg/24 hr patch 24 hour 03648 [id number] 52 Jessica Richmond [id number] [facility] ([facility]) olanzapine 10 MG Oral Tablet olanzapine 11/25/2019 12:00:00 AM EDT 10 mg by mouth completed [id number] olanzapine by mouth [id number] 201901/24/2020 at bedtime 30 10 mg tablet 12494 764103 [id number] Jessicaolimpia Richmond [id number] [facility] ([facility]) lamotrigine 100 MG Oral Tablet lamotrigine 11/25/2019 12:00:00 AM EDT 100 mg by mouth completed [id number] lamotrigine by mouth [id number] 01/24/2020 at bedtime 30 100 mg tablet 42185 070023 [id number] Radu olimpia Richmond [id number] [facility]) 24 HR Nicotine 0.583 MG/HR Transdermal Patch nicotine 11/25/2019 12:00:00 AM EDT 14 mg/24 completed [id number] nicotine to skin 11/25/2019 02/23/2020 once a day 30 14 mg/24 hr patch 24 hour 54307 [id number] 52 Jessica Richmond [id number] [facility]) Hydroxyzine Pamoate 50 MG Oral Capsule hydroxyzine pamoate 0 10/28/2019 12:00:00 AM EDT 50 mg by mouth completed [id number] hydroxyzine pamoate by mouth [id number] 10/28/2019 three times a day 50 mg capsule as needed 78 656 [id number] Jessica Richmond [id number] [facility] ([facility]) lamotrigine 25 MG Oral Tablet lamotrigine 10/28/2019 12:00:00 AM EDT 25 mg by mouth completed [id number] lamotrigine by mouth [id number] 10/2711/25/2019 as directed 25 mg tablet 20772 148832 [id number] Radu Richmond [id number] [facility]) olanzapine 15 MG Oral Tablet olanzapine 09/23/2019 12:00:00 AM EDT 15 mg by mouth completed [id number] olanzapine by mouth [id number] 201911/25/2019 at bedtime 30 15 mg tablet 45146 [id number] Jessica Richmond [id number] [facility] ([facility]) olanzapine 10 MG Oral Tablet olanzapine 08/26/2019 12:00:00 AM EDT 10 mg completed [id number] olanzapine 08/26/2019 10 mg tab let 42624 [id number] Jessica Richmond [id number] [facility] ([facility]) Lorazepam 0.5 MG Oral Tablet lorazepam 07/19/2019 12:00:00 AM EDT 0.5 mg by mouth completed lorazepam by mouth [id number] 020 three times a day 0.5 mg tablet 25643 276103 [id number] Jessica priest [id number] [facility] ([facility]) aripiprazole 10 MG Oral Tablet aripiprazole 07/11/2019 12:00:00 AM ED T 10 mg by mouth completed [id number] aripiprazole by mouth [id number] 0 07/11/2019 once a day 10 mg tablet 43852 548771 [id number] Jessica asher [id number] [facility] ([facility]) Lorazepam 1 MG Oral Tablet lorazepam 07/11/2019 12:00:00 AM EDT 1 mg by mouth completed lorazepam by mouth [id number] 07/11/2019 t wice a day 1 mg tablet 67714 121654 [id number] Jessica Richmond [id number] [facility] ([facility]) aripiprazole 10 MG Oral Tablet aripiprazole 07/11/2019 12:00:00 AM ED T 10 mg by mouth completed [id number] aripiprazole by mouth [id number] 0 07/11/2019 once a day 10 mg tablet 00289 499636 [id number] Jessica asher [id number] [facility] ([facility]) Lorazepam 1 MG Oral Tablet [Ativan] Ativan 05/02/2019 12:00:00 AM EST 1 mg by mouth completed [id number] Ativan by mouth [id number] 05/02/201905/2019 30 1 mg tablet as directed 91917 780108 [id number] Travis Hua [id number] [facility] ([facility]) Amphetamine aspartate 7.5 MG / Amphetami ne Sulfate 7.5 MG / Dextroamphetamine saccharate 7.5 MG / Dextroamphetamine Sulfate 7.5 MG Oral Tablet [Adderall] Adderall 05/02/2019 12:00:00 AM EST 30 mg by mouth completed [id number] Adderall by mouth [id number] 05/02/2019 06/01/2019 twice a day 30 30 mg tablet 06765 [id number] Travis Hua [id number] [facility] ([facility]) Amphetamine aspartate 7.5 MG / Amphetami ne Sulfate 7.5 MG / Dextroamphetamine saccharate 7.5 MG / Dextroamphetamine Sulfate 7.5 MG Oral Tablet [Adderall] Adderall 05/02/2019 12:00:00 AM EST 30 mg by mouth completed 214254 Adderall by mouth [id number] 05/02/2019 06/01/2019 twice a day 30 30 mg tablet 77745 [id number] Travis Hua [id number] [facility] ([facility]) Clomipramine Hydrochloride 75 MG Oral Capsule clomipramine 05/02/2019 12:00:00 AM EST 75 mg by mouth completed [id number] clomipramine by mouth [id number] 05/02/2019 06/01/2019 every morning 30 75 mg capsule 00664 1 [id number] [id number] Travis Hua [id number] [facility] ([facility]) Lorazepam 1 MG Oral Tablet [Ativan] Ativan 05/02/2019 12:00:00 AM EST 1 mg by mouth completed 718410 Ativan by mouth [id number] 05/02/201905/2019 30 1 mg tablet as directed 83143 996682 [id number] Travis Hua [id number] [facility] ([facility]) Clomipramine Hydrochloride 75 MG Oral Capsule clomipramine 05/02/2019 12:00:00 AM EST 75 mg by mouth completed [id number] clomipramine by mouth [id number] 05/02/2019 06/01/2019 every morning 30 75 mg capsule 56690 1 [id number] Travis Hua [id number] [facility] olanzapine 20 MG Oral Tablet olanzapine 04/11/2019 12:00:00 AM EST 20 mg by mouth completed [id number] olanzapine by mouth [id number] 201907/01/2019 at bedtime 30 20 mg tablet 14337 [id number] Travis angulo [id number] [facility] ([facility]) olanzapine 20 MG Oral Tablet olanzapine 04/11/2019 12:00:00 AM EST 20 mg by mouth completed [id number] olanzapine by mouth [id number] 201906/10/2019 at bedtime 30 20 mg tablet 17925 [id number] Travis angulo [id number] [facility]) olanzapine 20 MG Oral Tablet olanzapine 04/11/2019 12:00:00 AM EST 20 mg by mouth completed [id number] olanzapine by mouth [id number] 201907/01/2019 at bedtime 30 20 mg tablet 83959 [id number] Travis angulo [id number] [facility] ([facility]) lisdexamfetamine dimesylate 70 MG Oral Capsule [Vyvanse] Vyv anse 04/11/2019 12:00:00 AM EST 70 mg by mouth completed [id number] Vy vanse by mouth [id number] 04/11/2019 05/02/2019 every morning 30 70 mg capsule [id number] Travis Hua [id number] [facility] ([facility]) Lorazepam 1 MG Oral Tablet [Ativan] Ativan 04/11/2019 12:00:00 AM EST 1 mg by mouth completed [id number] Ativan by mouth [id number] 04/11/2019 05/11/2019 three times a day 30 1 mg tablet 50904 [id number] Travis Hua [id number] [facility]) lisdexamfetamine dimesylate 70 MG Oral Capsule [Vyvanse] Vyv anse 04/11/2019 12:00:00 AM EST 70 mg by mouth completed [id number] Vy vanse by mouth [id number] 04/11/2019 05/11/2019 every morning 30 70 mg capsule 74626 [id number] Travis Hua [id number] [facility]) Lorazepam 1 MG Oral Tablet [Ativan] Ativan 04/11/2019 12:00:00 AM EST 1 mg by mouth completed [id number] Ativan by mouth [id number] 04/11/2019 05/11/2019 three times a day 30 1 mg tablet 46166 352111 [id number] Travis Hua [id number] [facility] ([facility]) Lorazepam 1 MG Oral Tablet [Ativan] Ativan 04/11/2019 12:00:00 AM EST 1 mg by mouth completed [id number] Ativan by mouth [id number] 04/11/2019 04/11/2019 three times a day 30 1 mg tablet 16312 [id number] Travis Hua [id number] [facility] ([facility]) lisdexamfetamine dimesylate 70 MG Oral Capsule [Vyvanse] Vyv anse 04/11/2019 12:00:00 AM EST 70 mg by mouth completed [id number] Vy vanse by mouth [id number] 04/11/2019 05/11/2019 every morning 30 70 mg capsule 26442 [id number] Travis Hua [id number] [facility]) Lorazepam 1 MG Oral Tablet [Ativan] Ativan 04/11/2019 12:00:00 AM EST 1 mg by mouth completed [id number] Ativan by mouth [id number] 04/11/2019 05/02/2019 three times a day 30 1 mg tablet 33607 [id number] Travis Hua [id number] [facility]) Amphetamine aspartate 7.5 MG / Amphetami ne Sulfate 7.5 MG / Dextroamphetamine saccharate 7.5 MG / Dextroamphetamine Sulfate 7.5 MG Oral Tablet dextroamphetamine-amphetamine 03/26/2019 12:00:00 AM EST 30 mg by mouth completed [id number] dextroamphetamine-amphetamine by mouth [id number] 03/26/2019 04/11/2019 twice a day 30 30 mg tablet 30498 [id number] Latanya Hua [id number] [facility]) Lorazepam 2 MG Oral Tablet [Ativan] Ativan 03/19/2019 12:00:00 AM EST 2 mg by mouth completed [id number] Ativan by mouth [id number] 03/19/2019 04/11/2019 twice a day 14 2 mg tablet 37950 [id number] Benitez Guadarrama [id number] Psych[facility] ([facility]) Temazepam 15 MG Oral Capsule temazepam 03/18/2019 12:00:00 AM EST 15 mg by mouth completed [id number] temazepam by mouth [id number] 020 04/11/2019 at bedtime 30 15 mg capsule 56765 [id number] Travis elias [id number] [facility] ([facility]) Temazepam 15 MG Oral Capsule temazepam 02/15/2019 12:00:00 AM EST 15 mg by mouth completed [id number] temazepam by mouth [id number] 019 03/17/2019 at bedtime 30 15 mg capsule 80783 [id number] Travis elias [id number] [facility]) Temazepam 15 MG Oral Capsule temazepam 02/15/2019 12:00:00 AM EST 15 mg by mouth completed [id number] temazepam by mouth [id number] 019 03/17/2019 at bedtime 30 15 mg capsule 01023 [id number] Travis elias [id number] [facility]) Clomipramine Hydrochloride 75 MG Oral Capsule clomipramine 02/15/2019 12:00:00 AM EST 75 mg by mouth completed [id number] clomipramine by mouth [id number] 02/15/2019 06/10/2019 every morning 30 75 mg capsule 32888 1 [id number] Travis Melita [id number] [facility] ([facility]) Clomipramine Hydrochloride 75 MG Oral Capsule clomipramine 02/15/2019 12:00:00 AM EST 75 mg by mouth completed [id number] clomipramine by mouth [id number] 02/15/2019 06/10/2019 every morning 30 75 mg capsule 57493 1 [id number] Travis Melita [id number] [facility]) Clomipramine Hydrochloride 75 MG Oral Capsule clomipramine 02/15/2019 12:00:00 AM EST 75 mg by mouth completed [id number] clomipramine by mouth [id number] 02/15/2019 04/16/2019 every morning 30 75 mg capsule 95546 1 [id number] Travis Hua [id number] [facility] ([facility]) Amphetamine aspartate 7.5 MG / Amphetami ne Sulfate 7.5 MG / Dextroamphetamine saccharate 7.5 MG / Dextroamphetamine Sulfate 7.5 MG Oral Tablet dextroamphetamine-amphetamine 01/01/2019 12:00:00 AM EST 30 mg by mouth completed [id number] dextroamphetamine-amphetamine by mouth [id number] 01/01/2019 01/31/2019 twice a day 30 30 mg tablet 87072 [id number] [id number]) Amphetamine aspartate 7.5 MG / Amphetami ne Sulfate 7.5 MG / Dextroamphetamine saccharate 7.5 MG / Dextroamphetamine Sulfate 7.5 MG Oral Tablet dextroamphetamine-amphetamine 01/01/2019 12:00:00 AM EST 30 mg by mouth completed [id number] dextroamphetamine-amphetamine by mouth [id number] 01/01/2019 02/27/2019 twice a day 30 30 mg tablet 95881 [id number] omas Ciales [id number] [facility]) Amphetamine aspartate 7.5 MG / Amphetami ne Sulfate 7.5 MG / Dextroamphetamine saccharate 7.5 MG / Dextroamphetamine Sulfate 7.5 MG Oral Tablet dextroamphetamine-amphetamine 01/01/2019 12:00:00 AM EST 30 mg by mouth completed [id number] dextroamphetamine-amphetamine by mouth [id number] 01/01/2019 03/17/2019 twice a day 30 30 mg tablet 65126 [id number] omas Melita [id number] [facility]) Fluoxetine 20 MG Oral Capsule fluoxetine 01/01/2019 12:00:00 AM EST 20 mg by mouth completed [id number] fluoxetine by mouth [id number] 201804/16/2019 every morning 30 20 mg capsule 91480 [id number] Graeme as Ciales [id number] [facility] ([facility]) Amphetamine aspartate 7.5 MG / Amphetami ne Sulfate 7.5 MG / Dextroamphetamine saccharate 7.5 MG / Dextroamphetamine Sulfate 7.5 MG Oral Tablet dextroamphetamine-amphetamine 01/01/2019 12:00:00 AM EST 30 mg by mouth completed [id number] dextroamphetamine-amphetamine by mouth [id number] 01/01/2019 03/17/2019 twice a day 30 30 mg tablet 45828 [id number] [facility] Ciales [id number] [facility]) Lorazepam 2 MG Oral Tablet [Ativan] Ativan 01/01/2019 12:00:00 AM EST 2 mg by mouth completed [id number] Ativan by mouth [id number] 01/01/2019 02/04/2019 twice a day 7 2 mg tablet 22788 [id number] Travis elias [id number] [facility] ([facility]) Fluoxetine 20 MG Oral Capsule fluoxetine 01/01/2019 12:00:00 AM EST 20 mg by mouth completed [id number] fluoxetine by mouth [id number] 201803/02/2019 every morning 30 20 mg capsule 10026 [id number] [facility] as Melita [id number] [facility] ([facility]) Fluoxetine 20 MG Oral Capsule fluoxetine 01/01/2019 12:00:00 AM EST 20 mg by mouth completed [id number] fluoxetine by mouth [id number] 201804/11/2019 every morning 30 20 mg capsule 43058 [id number] Graeme as Melita [id number] [facility] ([facility]) Fluoxetine 20 MG Oral Capsule fluoxetine 01/01/2019 12:00:00 AM EST 20 mg by mouth completed [id number] fluoxetine by mouth [id number] 201803/02/2019 every morning 30 20 mg capsule 18756 [id number] Graeme as Melita [id number] [facility] ([facility]) Fluoxetine 20 MG Oral Capsule fluoxetine 01/01/2019 12:00:00 AM EST 20 mg by mouth completed [id number] fluoxetine by mouth [id number] 201803/02/2019 every morning 30 20 mg capsule 90090 [id number] [id number] Graeme as Ciales [id number] [facility] ([facility]) 24 HR Nicotine 0.875 MG/HR Transdermal Patch nicotine 12/11/2018 12:00:00 AM EDT 21 mg/24 completed nicotine to skin 12/11/2018 05/10/2019 once a day 30 21 mg/24 hr patch 24 hour as directed 92463 107 [id number] [id number] Travis Hua [id number] [facility]) 24 HR Nicotine 0.875 MG/HR Transdermal Patch nicotine 12/11/2018 12:00:00 AM EDT 21 mg/24 completed nicotine to skin 12/11/2018 05/10/2019 once a day 30 21 mg/24 hr patch 24 hour as directed 29205 107 709 [id number] Travis Hua [id number] [facility] ([facility]) 24 HR Nicotine 0.875 MG/HR Transdermal Patch nicotine 12/11/2018 12:00:00 AM EDT 21 mg/24 completed nicotine to skin 12/11/2018 04/11/2019 once a day 30 21 mg/24 hr patch 24 hour as directed 84636 107 709 [id number] Travis Hua [id number] [facility]) 24 HR Nicotine 0.875 MG/HR Transdermal Patch nicotine 12/11/2018 12:00:00 AM EDT 21 mg/24 completed nicotine to skin 12/11/2018 05/10/2019 once a day 30 21 mg/24 hr patch 24 hour as directed 33459 107 709 [id number] Travis Hua [id number] [facility] ([facility]) 24 HR Nicotine 0.875 MG/HR Transdermal Patch nicotine 12/11/2018 12:00:00 AM EDT 21 mg/24 completed nicotine to skin 12/11/2018 05/10/2019 once a day 30 21 mg/24 hr patch 24 hour as directed 52230 107 709 [id number] Travis Hua [id number] [facility] ([facility]) olanzapine 20 MG Oral Tablet olanzapine 12/11/2018 12:00:00 AM EDT 20 mg by mouth completed [id number] olanzapine by mouth [id number] 201801/31/2019 at bedtime 30 20 mg tablet 28669 [id number] Travis angulo [id number] [facility] ([facility]) 24 HR Nicotine 0.875 MG/HR Transdermal Patch nicotine 12/11/2018 12:00:00 AM EDT 21 mg/24 completed nicotine to skin 12/11/2018 05/10/2019 once a day 30 21 mg/24 hr patch 24 hour as directed 94599 107 709 [id number] Travis Hua [id number] [facility] ([facility]) 24 HR Nicotine 0.875 MG/HR Transdermal Patch nicotine 12/11/2018 12:00:00 AM EDT 21 mg/24 completed nicotine to skin 12/11/2018 05/10/2019 once a day 30 21 mg/24 hr patch 24 hour as directed 80076 107 709 [id number] Travis Hua [id number] [facility]) Insurance Providers Payer name Policy type / Coverage type Policy ID Covered constitution party ID Covered constitution party's relationship to burgos Policy [place] Plan Information HUMANA GOLD [id number] SP [id number] HUMANA GOLD O [id number] S [id number] Medicare S [id number] S [id number] A [employer] P [id number] S [id number] HU[employer] GOLD [id number] SP [id number] MEDICAID [id number] SP [id number] MEDICARE [id number] SP [id number] A SELF PAY ONLY [id number] SP [id number] Medicare S [id number] S [id number] A [facility] O [id number] S [id number] [facility] DEPT [id number] SP [id number] Medicare P [id number] S [id number] A Medicare (Part B) Medicare Primary [id number] Self [id number] Self Pay P UNAVAILABLE S UNAVAILA BLE Managed Care - Community Plan [facility] P [id number] S [id number] Medicaid S [id number] S [id number] [facility] COMMUNITY PLAN [facility] [id number] SP [id number] [facility] O [id number] S [id number] [facility] Maintenance Organization (HMO) Self [facility] JAREN [id number] SP [id number] [facility] COMMUNITY [facility] [id number] SP [id number] [facility] [id number] SP [id number] [employer] (MVP) [id number] SP [id number] SELF PAY UNAVAILABLE UNAVAILA BLE [facility] COMMUNITY [facility] [id number] SP [id number] [facility] PHY [id number] SP [id number] [facility] [id number] SP [id number] Problems, Conditions, and Diagnoses Code Display Name Description Problem Type Effective Dates Data Source(s) F17.210 Nicotine dependence, cigarettes, uncompl icated Nicotine dependence, cigarettes, uncomplicated Condition 03/24/2020 12:00:00 AM EST [facility] ([facility]) F12.10 Cannabis abuse, uncomplicated Cannabis Use Disorder, M ild Condition 03/24/2020 12:00:00 AM EST [facility] ([facility]) F25.0 Schizoaffective disorder, bipolar type S chizoaffective Disorder, Bipolar type Condition 03/24/2020 12:00:00 AM EST [facility] ([facility]) F42.2 Mixed obsessional thoughts and acts Obsessive-Co mpulsive Disorder Condition 03/24/2020 12:00:00 AM EST [facility] ([facility]) F17.210 Nicotine dependence, cigarettes, uncompl icated Nicotine dependence, cigarettes, uncomplicated Condition 01/31/2020 12:00:00 AM EST [facility] ([facility]) F12.10 Cannabis abuse, uncomplicated Cannabis Use Disorder, M ild Condition 01/31/2020 12:00:00 AM EST [facility] ([facility]) F90.2 Attention-deficit hyperactivity disorder , combined type Attention- Deficit/Hyperactivity Disorder, Combined presentation Condition 01/31/2020 12:00:00 AM EST [facility] ([facility]) F25.0 Schizoaffective disorder, bipolar type S chizoaffective Disorder, Bipolar type Condition 01/31/2020 12:00:00 AM EST [facility] ([facility]) F20.0 Paranoid schizophrenia Paranoid schizophrenia Conditio n 01/31/2020 12:00:00 AM EST [facility] ([facility]) Surgeries/Procedures Procedure Description Date Indications Data Source(s) [facility] Telemed E/M Lvl 3--Est pt 03/24/2020 12:00:00 AM EST - 03/24/2020 12:00:00 AM EST [facility] ([facility]) Telemed A/O 30" 03/24/2020 12:00:00 AM EST [facility] ([facility]) [facility] Telemed E/M Lvl 3--Est pt 03/24/2020 12:00:[address] [facility] ([facility]) PHYSICIAN TELEPHONE EVALUATION 11-20 MIN 03/12/2020 12:00:00 AM EST - 03/12/2020 12:00:00 AM EST [facility] ([facility]) PHYSICIAN TELEPHONE EVALUATION 11-20 MIN 03/09/2020 12 :00:00 AM EST [facility] ([facility]) [facility] Telemed E/M Lvl 3--Est pt 03/03/2020 12:00:00 AM EST - 03/03/2020 12:00:00 AM EST [facility] ([facility]) Telemed A/O 30" 03/03/2020 12:00:00 AM EST [facility] ([facility]) [facility] Telemed E/M Lvl 3--Est pt 03/03/2020 12:00:[address] [facility] ([facility]) MHC Telemed E/M Lvl 3--Est pt 01/31/2020 12:00:00 AM EST - 01/31/2020 12:00:00 AM EST [facility] ([facility]) Telemed A/O 30" 01/31/2020 12:00:00 AM EST [facility] ([facility]) MHC Telemed E/M Lvl 3--Est pt 01/31/2020 12:00:[address] [facility] ([facility]) MHC Telemed E/M Lvl 3--Est pt 01/10/2020 12:00:00 AM EST - 01/10/2020 12:00:00 AM EST [facility] ([facility]) Telemed A/O 30" 01/10/2020 12:00:00 AM EST [facility] ([facility]) MHC Telemed E/M Lvl 3--Est pt 01/10/2020 12:00:[address] [facility] ([facility]) MHC Telemed E/M Lvl 3--Est pt 11/25/2019 12:00:00 AM EDT - 11/25/2019 12:00:00 AM EDT [facility] ([facility]) Telemed A/O 30" 11/25/2019 12:00:00 AM EDT [facility] ([facility]) MHC Telemed E/M Lvl 3--Est pt 11/25/2019 12:00:00 AM E DT [facility] ([facility]) MHC Telemed E/M Lvl 3--Est pt 08/26/2019 12:00:00 AM EDT - 08/26/2019 12:00:00 AM EDT [facility] ([facility]) Telemed A/O 30" 08/26/2019 12:00:00 AM EDT [facility] ([facility]) MHC Telemed E/M Lvl 3--Est pt 08/26/2019 12:00:00 AM E DT [facility] ([facility]) MHC Telemed E/M Lvl 3--Est pt 07/11/2019 12:00:00 AM EDT - 07/11/2019 12:00:00 AM EDT [facility] ([facility]) Telemed A/O 30" 07/11/2019 12:00:00 AM EDT [facility] ([facility]) MHC Telemed E/M Lvl 3--Est pt 07/11/2019 12:00:00 AM E DT [facility] ([facility]) MHC Telemed E/M Lvl 3--Est pt 05/27/2019 12:00:00 AM EDT - 05/27/2019 12:00:00 AM EDT [facility] ([facility]) Telemed A/O 30" 05/27/2019 12:00:00 AM EDT [facility] ([facility]) MHC Telemed E/M Lvl 3--Est pt 05/27/2019 12:00:00 AM E DT [facility] ([facility]) OFFICE OUTPATIENT VISIT 10 MINUTES 05/08 12:00:00 AM EDT - 05/09/2019 12:00:00 AM EDT [facility] ([facility]) OFFICE OUTPATIENT VISIT 10 MINUTES 05/09/2019 12:00:00 AM EDT [facility] ([facility]) OFFICE OUTPATIENT VISIT 10 MINUTES 05/01 12:00:00 AM EST - 05/02/2019 12:00:00 AM EST [facility] ([facility] OFFICE OUTPATIENT VISIT 10 MINUTES 05/02/2019 12:00:00 AM EST [facility] ([facility]) OFFICE OUTPATIENT VISIT 10 MINUTES 04/24 12:00:00 AM EST - 04/24/2019 12:00:00 AM EST [facility] ([facility]) OFFICE OUTPATIENT VISIT 10 MINUTES 04/24/2019 12:00:00 AM EST [facility] ([facility]) OFFICE OUTPATIENT VISIT 10 MINUTES 04/11 12:00:00 AM EST - 04/11/2019 12:00:00 AM EST [facility] ([facility]) OFFICE OUTPATIENT VISIT 10 MINUTES 04/11/2019 12:00:00 AM EST [facility] ([facility]) OFFICE OUTPATIENT VISIT 10 MINUTES 03/14 12:00:00 AM EST - 03/14/2019 12:00:00 AM EST [facility] ([facility]) OFFICE OUTPATIENT VISIT 10 MINUTES 03/14/2019 12:00:00 AM EST [facility] ([facility]) OFFICE OUTPATIENT VISIT 10 MINUTES 02/15 12:00:00 AM EST - 02/15/2019 12:00:00 AM EST [facility] ([facility]) OFFICE OUTPATIENT VISIT 10 MINUTES 02/15/2019 12:00:00 AM EST [facility] ([facility]) OFFICE OUTPATIENT VISIT 15 MINUTES 02/04 12:00:00 AM EST - 02/04/2019 12:00:00 AM EST [facility] ([facility]) OFFICE OUTPATIENT VISIT 15 MINUTES 02/04/2019 12:00:00 AM EST [facility] ([facility]) Results ID Date Data Source [id number] 03/09/2020 02:04:00 PM EST JENNIFER ([facility]) Name Value Range Interpretation Code Description Data Dyan rce(s) Supporting Document(s) sars-cov-2 negative negative normal Sars-cov-2 JENNIFER ([facility]) ID Date Data Source [id number] 03/09/2020 01:03:00 PM EST [facility] Name Value Range Interpretation Code Description Data Dyan rce(s) Supporting Document(s) SARS coronavirus 2 RdRp gene [Presence] in Respiratory specimen by RUBIO with probe detection Not detected [facility] This lab was ordered by [facility] and reported by [facility]. Procedure Social History Code Duration Value Status Description Data Source(s ) Smoking 03/24/2020 12:00:00 AM EST Current every day smoker co mpleted Current every day smoker [facility] ([facility]) Smoking 03/12/2020 12:00:00 AM EST Current every day smoker co mpleted Current every day smoker [facility] ([facility]) Smoking 03/03/2020 12:00:00 AM EST Current every day smoker co mpleted Current every day smoker [facility] ([facility]) Smoking 01/31/2020 12:00:00 AM EST Current every day smoker co mpleted Current every day smoker [facility] ([facility]) Smoking 01/10/2020 12:00:00 AM EST Current every day smoker co mpleted Current every day smoker [facility] ([facility]) Smoking 11/25/2019 12:00:00 AM EDT Current every day smoker co mpleted Current every day smoker [facility] ([facility]) Smoking 08/26/2019 12:00:00 AM EDT Current every day smoker co mpleted Current every day smoker [facility] ([facility]) Smoking 07/11/2019 12:00:00 AM EDT Current every day smoker co mpleted Current every day smoker [facility] ([facility]) Smoking 05/27/2019 12:00:00 AM EDT Current every day smoker co mpleted Current every day smoker [facility] ([facility]) Smoking 05/09/2019 12:00:00 AM EDT Current every day smoker co mpleted Current every day smoker [facility] ([facility]) Smoking 05/02/2019 12:00:00 AM EST Current every day smoker co mpleted Current every day smoker [facility] ([facility]) Smoking 04/24/2019 12:00:00 AM EST Current every day smoker co mpleted Current every day smoker [facility] ([facility]) Smoking 04/11/2019 12:00:00 AM EST Current every day smoker co mpleted Current every day smoker [facility] ([facility]) Smoking 03/14/2019 12:00:00 AM EST Current every day smoker co mpleted Current every day smoker [facility] ([facility]) Smoking 02/15/2019 12:00:00 AM EST Current every day smoker co mpleted Current every day smoker [facility] ([facility]) Smoking 02/04/2019 12:00:00 AM EST Current every day smoker co mpleted Current every day sm[facility] Vital Signs ID Date Data Source [id number] Name Value Range Interpretation Code Description Data Source(s) Diastolic blood pressure 0 mm[Hg] Normal (applies to non-numeric results) 0 mm[Hg] [facility] ([facility]) Systolic blood pressure 0 mm[Hg] Normal (applies t o non-numeric results) 0 mm[Hg] [facility] ([facility]) Body mass index (BMI) [Ratio] 0.00 kg/m2 No rmal (applies to non-numeric results) 0.00 kg/m2 [facility] ([facility]) Body weight Measured 0.00 lbs Normal (applies to n on-numeric results) 0.00 lbs [facility] ([facility]) Body height 0.00 in Normal (applies to non-numeric resu lts) 0.00 in [facility] ([facility]) Diastolic blood pressure 0 mm[Hg] Normal (applies to non-numeric results) 0 mm[Hg] [facility] ([facility]) Systolic blood pressure 0 mm[Hg] Normal (applies t o non-numeric results) 0 mm[Hg] [facility] ([facility]) Body mass index (BMI) [Ratio] 0.00 kg/m2 No rmal (applies to non-numeric results) 0.00 kg/m2 [facility] ([facility]) Body weight Measured 0.00 lbs Normal (applies to n on-numeric results) 0.00 lbs [facility] ([facility]) Body height 0.00 in Normal (applies to non-numeric resu lts) 0.00 in [facility] ([facility]) Diastolic blood pressure 0 mm[Hg] Normal (applies to non-numeric results) 0 mm[Hg] [facility] ([facility]) Systolic blood pressure 0 mm[Hg] Normal (applies t o non-numeric results) 0 mm[Hg] [facility] ([facility]) Body mass index (BMI) [Ratio] 0.00 kg/m2 No rmal (applies to non-numeric results) 0.00 kg/m2 [facility] ([facility]) Body weight Measured 0.00 lbs Normal (applies to n on-numeric results) 0.00 lbs [facility] ([facility]) Body height 0.00 in Normal (applies to non-numeric resu lts) 0.00 in [facility] ([facility]) Diastolic blood pressure 0 mm[Hg] Normal (applies to non-numeric results) 0 mm[Hg] [facility] ([facility]) Systolic blood pressure 0 mm[Hg] Normal (applies t o non-numeric results) 0 mm[Hg] [facility] ([facility]) Body mass index (BMI) [Ratio] 0.00 kg/m2 No rmal (applies to non-numeric results) 0.00 kg/m2 [facility] ([facility]) Body weight Measured 0.00 lbs Normal (applies to n on-numeric results) 0.00 lbs [facility]) Body height 0.00 in Normal (applies to non-numeric resu lts) 0.00 in [facility] ([facility]) Diastolic blood pressure 0 mm[Hg] Normal (applies to non-numeric results) 0 mm[Hg] [facility] ([facility]) Systolic blood pressure 0 mm[Hg] Normal (applies t o non-numeric results) 0 mm[Hg] [facility] ([facility]) Body mass index (BMI) [Ratio] 0.00 kg/m2 No rmal (applies to non-numeric results) 0.00 kg/m2 [facility] ([facility]) Body weight Measured 0.00 lbs Normal (applies to n on-numeric results) 0.00 lbs [facility] ([facility]) Body height 0.00 in Normal (applies to non-numeric resu lts) 0.00 in [facility] ([facility]) Body height 0.00 in Normal (applies to non-numeric resu lts) 0.00 in [facility] ([facility]) Diastolic blood pressure 0 mm[Hg] Normal (applies to non-numeric results) 0 mm[Hg] [facility] ([facility]) Systolic blood pressure 0 mm[Hg] Normal (applies t o non-numeric results) 0 mm[Hg] [facility] ([facility]) Body mass index (BMI) [Ratio] 0.00 kg/m2 No rmal (applies to non-numeric results) 0.00 kg/m2 [facility] ([facility]) Body weight Measured 0.00 lbs Normal (applies to n on-numeric results) 0.00 lbs [facility] ([facility]) Diastolic blood pressure 0 mm[Hg] Normal (applies to non-numeric results) 0 mm[Hg] [facility] ([facility]) Systolic blood pressure 0 mm[Hg] Normal (applies t o non-numeric results) 0 mm[Hg] [facility] ([facility]) Body mass index (BMI) [Ratio] 0.00 kg/m2 No rmal (applies to non-numeric results) 0.00 kg/m2 [facility] ([facility]) Body weight Measured 0.00 lbs Normal (applies to n on-numeric results) 0.00 lbs [facility] ([facility]) Body height 0.00 in Normal (applies to non-numeric resu lts) 0.00 in [facility] ([facility]) Diastolic blood pressure 0 mm[Hg] Normal (applies to non-numeric results) 0 mm[Hg] [facility] ([facility]) Systolic blood pressure 0 mm[Hg] Normal (applies t o non-numeric results) 0 mm[Hg] [facility] ([facility]) Body mass index (BMI) [Ratio] 0.00 kg/m2 No rmal (applies to non-numeric results) 0.00 kg/m2 [facility] ([facility]) Body weight Measured 0.00 lbs Normal (applies to n on-numeric results) 0.00 lbs [facility] ([facility]) Body height 0.00 in Normal (applies to non-numeric resu lts) 0.00 in [facility] ([facility]) Diastolic blood pressure 0 mm[Hg] Normal (applies to non-numeric results) 0 mm[Hg] [facility] ([facility]) Systolic blood pressure 0 mm[Hg] Normal (applies t o non-numeric results) 0 mm[Hg] [facility] ([facility]) Body mass index (BMI) [Ratio] 0.00 kg/m2 No rmal (applies to non-numeric results) 0.00 kg/m2 [facility] ([facility]) Body weight Measured 0.00 lbs Normal (applies to n on-numeric results) 0.00 lbs [facility] ([facility]) Body height 0.00 in Normal (applies to non-numeric resu lts) 0.00 in [facility] ([facility]) Diastolic blood pressure 0 mm[Hg] Normal (applies to non-numeric results) 0 mm[Hg] [facility] ([facility]) Systolic blood pressure 0 mm[Hg] Normal (applies t o non-numeric results) 0 mm[Hg] [facility] ([facility]) Body mass index (BMI) [Ratio] 0.00 kg/m2 No rmal (applies to non-numeric results) 0.00 kg/m2 [facility] ([facility]) Body weight Measured 0.00 lbs Normal (applies to n on-numeric results) 0.00 lbs [facility] ([facility]) Body height 0.00 in Normal (applies to non-numeric resu lts) 0.00 in [facility] ([facility]) Diastolic blood pressure 0 mm[Hg] Normal (applies to non-numeric results) 0 mm[Hg] [facility] ([facility]) Systolic blood pressure 0 mm[Hg] Normal (applies t o non-numeric results) 0 mm[Hg] [facility] ([facility]) Body mass index (BMI) [Ratio] 0.00 kg/m2 No rmal (applies to non-numeric results) 0.00 kg/m2 [facility] ([facility]) Body weight Measured 0.00 lbs Normal (applies to n on-numeric results) 0.00 lbs [facility] ([facility]) Body height 0.00 in Normal (applies to non-numeric resu lts) 0.00 in [facility] ([facility])
--- OUTSIDE RECORDS SUMMARY | 2020-03-29 14:10 | CCD ---
Author Author Rolo Hess Leroy Organization Unknown Address [address] [place] [phone] Phone Care Team Providers Care House Carpenter Helper Name Role Phone Leroy Hess PCP Allergies, [...] 11/20/2018 F17.210 Nicotine dependence, cigarettes, uncomplicated Active 01/10/2020 Medications Rx Norm Medication Route Route Concept Start Date Stop Date Dosage Rashad quency Duration Formula Strength Dosage Form Dosage Form Code Dosage Description Medication Id Account Npid Author First Name Author Last Name Taxonomy Code Taxonomy Desc Phone Number [id number] nicotine to skin 11/25/2019 02/23/2020 once a day 30 14 mg/24 hr patch 24 hour [id number] Jessica Richmond [id number] Psychiatric/Mental Health [phone] Social History Social History Element Description Concept Effective Date Smoking Status Current every day smoker [id number] Immunizations No Data in Section Vital Signs Encounter Date Height Ins Weight Lbs Bmi Bp Systolic Bp Diastoli c Oxygen Saturation Respiration Rate Pulse Rate Body Temp Head Circumference Heigh t Lying 01/10/2020 0.00 0.00 0.00 0 0 0.00 0 0 0.00 0.0 0.0 0 Procedures Date Concept Id Description Targeted Site Concept Targeted Site Concept Type 01/10/2020 96028-30 [facility] Tele[facility] E/M Lvl 3--Est pt CPT 01/10/2020 78907-14 Telemed A/O 30" CPT Patient has no history of implantable de vices Encounters Encounter Start Date End Date Encounter Type Description Diagnosis Di agnosis Desc Location Author First Name Author Last Name Npid Taxonomy Cod e Taxonomy Desc Phone Number Location Addr1 Location Addr2 Location [facility] Location Sta te Location [facility] [id number] 01/10/2020 01/10/2020 29866-46 [facility] Telemed E/M Lvl 3--Est p t F42.2 Obsessive-compulsive disorder [facility] Deshawn Harper [phone] [id number] Nurse Practitioner [id number] [address] [place] [id number] Plan of Treatment No Data in Section Lab Results No Data in Section Instructions No Data in Section Functional Cognitive Status No Data in Section Insurance Providers Insurance Id Policy Effective Date Policy Thru Date [employer] Lyndsey fair [id number] 2017 [employer] PP O- Medicare
[2020-03-29] MEDS ORDERED: SERT50TA29 (14:40)
[2020-03-29] MEDS ORDERED: QUET200T2 (14:40)
[2020-03-29] MEDS ORDERED: LAMO100T3 (14:40)
--- OUTSIDE RECORDS SUMMARY | 2020-03-29 14:51 | CCD ---
Author Author [facility] Organization [facility] Address Unknown Phone Unavailable Care Team Providers Care National Insurance Officer Name Role Phone Evy Fernando MD Unavailable [...] Unavailable Evy Fernando MD Unavailable Unavailable Evy Feranndo MD Unavailable Unavailable Evy Fernando MD Unavailable [...] Unavailable Unavailable Evy Fernando MD Unavailable Unavailable Hathorne, C Travis Unavailable Unavailable Melita, C Travis Unavailable Unavailable Melita, C Travis Unavailable Unavailable Melita, C Travis Unavailable Unavailable Melita, C Travis Unavailable Unavailable Hathorne, C Travis Unavailable Unavailable Hathorne, C Travis Unavailable Unavailable Yi, Yesy LovelaceJessica PMH-QUANTITATIVE CONSULTANT Unavailable Unavailable [place], K Jessica PMH-QUANTITATIVE CONSULTANT Unavailable Unavailable Yi, K Jessica PMH-QUANTITATIVE CONSULTANT Unavailable Unavailable Yi, K Jessica PMH-QUANTITATIVE CONSULTANT Unavailable Unavailable [place], K Jessica PMH-QUANTITATIVE CONSULTANT Unavailable Unavailable Yi, K Jessica PMH-QUANTITATIVE CONSULTANT Unavailable Unavailable Herlinda PACE MD Unavailable Unavailable [...] Unavailable Herlinda PACE MD Unavailable Unavailable Herlinda APCE MD Unavailable Unavailable Herlinda PACE MD Unavailable [...] Herlinda HAILE MD Unavailable Unavailable GEOFFREY, Herlinda HALIE MD Unavailable Unavailable GEOFFREY, Herlinda HAILE MD [...] is protected by Article 27-F of the [facility] Public Health law. If you continue you may have access to information: Regarding HIV / AIDS; Provided by facilities licensed or operated by the [facility] Office of Mental Health; or Provided by the [facility] Office for People With Developmental Disabilities. If such information is present, then the following [facility] mandated warning applies: This information has been [...] law may result in a fine or shelter sentence or both. A general authorization for the release of medical or other information is NOT sufficient authorization for further disc losure. Allergies and Adverse Reactions Type Description Substance Reaction Status Data Source(s ) Allergy to substance Allergy to substance Allergy to substance ALACHUA ([facility]) Family History Family Member Name Family Member Gender Family Member Status Date o f Status Description Data Source(s) Unknown Male Problem MEDENT ([facility]) Unknown Unknown Problem MEDENT ([facility], [facility]) Encounters Encounter Providers Location Date Indications Data Source(s ) [facility] 02:30:00 AM EST - 03/24/2020 02:30:00 AM EST [facility] ([facility]) Attender: Leroy Hess NP 03/24/2020 12:00:00 AM EST [facility] ([facility]) Attender: Leroy Hess NP 03/12/2020 12:00:00 AM EST [facility] ([facility]) TEMP Phone E/M; 11-20" Attender: Leroy Hess NP [facility] 03/09/2020 03:00:00 AM EST - 03/09/2020 03:00:00 AM EST [facility] ([facility]) Benitez Fernando MD: [address] [place] [phone], Ph. Attender: Benitez Fernando MD [facility] Medical 03/09/2020 12:00:00 AM EST JENNIFER ([facility]) Outpatient Attender: Leroy Hess NP [facility] 03/03/2020 02:00:00 AM EST - 03/03/2020 02:00:00 AM EST [facility] ([facility]) Attender: Leroy Hess NP 03/03/2020 12:00:00 AM EST [facility] ([facility]) Outpatient Attender: Leroy Hess NP [facility] 01/31/2020 02:00:00 AM EST - 01/31/2020 02:00:00 AM EST [facility] ([facility]) Attender: Leroy Hess NP 01/31/2020 12:00:00 AM EST [facility] ([facility]) Outpatient Attender: Leroy Hess NP [facility] 01/10/2020 01:00:00 AM EST - 01/10/2020 01:00:00 AM EST [facility] ([facility]) Attender: Leroy Hess NP 01/10/2020 12:00:00 AM EST [facility] ([facility]) Outpatient Attender: LAZARA PACE MD 11/27/2019 12:02:13 A M EDT [facility] Outpatient Attender: LAZARA PACE MD 11/26/2019 08:59:00 A M EDT [facility] Outpatient Attender: Jessica Richmond [facility]-QUANTITATIVE CONSULTANT [facility] 11/25/2019 03:00:00 AM EDT - 11/25/2019 03:00:00 AM EDT [facility] ([facility]) Attender: Jessica BOYD-QUANTITATIVE CONSULTANT 11/25/2019 12: 00:00 AM EDT [facility] ([facility]) Outpatient Attender: LAZARA PACE MD 11[facility]: LA[facility]ARA [facility]ACE MD 10/11/2019 08:01:08 P M EDT [facility] Outpatient Attender: Jessica BOYDDANIELA [facility] 08/26/2019 11:30:00 AM EDT - 08/26/2019 11:30:00 AM EDT [facility] ([facility]) Attender: Jessica ORTEGA 08/26/2019 12: 00:00 AM EDT [facility] ([facility]) Outpatient Attender: Jessica BOYDDANIELA [facility] 07/11/2019 03:00:00 AM EDT - 07/11/2019 03:00:00 AM EDT [facility] ([facility]) Attender: Jessica ORTEGA 07/11/2019 12: 00:00 AM EDT [facility] ([facility]) Outpatient Attender: Jessica ORTEGA [facility] 05/27/2019 01:00:00 AM EDT - 05/27/2019 01:00:00 AM EDT [facility] ([facility]) Attender: Jessica BOYDDANIELA 05/27/2019 12: 00:00 AM EDT [facility] ([facility]) Outpatient Attender: Travis Sutherlandling [facility] 0 05/09/2019 02:00:00 AM EDT - 05/09/2019 02:00:00 AM EDT [facility] ([facility]) Attender: Travis Hua 05/09/2019 12:00:00 AM EDT [facility] ([facility]) Outpatient Attender: Travis Hua [facility] 0 05/02/2019 02:00:00 AM EST - 05/02/2019 02:00:00 AM EST [facility] ([facility]) Attender: Travis Hua 05/02/2019 12:00:00 AM EST [facility] ([facility]) Outpatient Attender: Travis [facility] 0 04/24/2019 01:30:00 AM EST - 04/24/2019 01:30:00 AM EST [facility] ([facility] Attender: Travis Hua 04/24/2019 12:00:00 AM EST [facility] ([facility]) Outpatient Attender: LAZARA PACE MD 04/19/2019 08:01:24 P M [facility] Outpatient Attender: LAZARA PACE MD 04/12/2019 08:01:53 P M [facility] Outpatient Attender: Travis Hua [facility] 0 04/11/2019 10:30:00 AM EST - 04/11/2019 10:30:00 AM EST [facility] ([facility]) Attender: Travis Hua 04/11/2019 12:00:00 AM EST [facility] ([facility]) Outpatient Attender: Travis Hua [facility] 0 03/14/2019 02:30:00 AM EST - 03/14/2019 02:30:00 AM EST [facility] ([facility]) Attender: Travis Hua 03/14/2019 12:00:00 AM EST [facility] ([facility]) Outpatient Attender: Travis Hua [facility] 1 04/18/2018 02:30:00 AM EST - 02/15/2019 02:30:00 AM EST [facility] ([facility]) Attender: Travis Hua 02/15/2019 12:00:00 AM EST [facility] ([facility]) Outpatient Attender: Travis Hua [facility] 1 04/07/2018 03:30:00 AM EST - 02/04/2019 03:30:00 AM EST [facility] ([facility]) Attender: Travis Hua 02/04/2019 12:00:00 AM EST [facility] ([facility]) Functional Status Medications Medication Brand Name Start [...] AM EDT 5 mg by mouth completed [id number] olanzapine by mouth [id number] 2019 once a day 5 mg tablet 31574 [id number] [id number] Jessica Richmond [id number] Psychiatric/Mental Health [facility] ([facility]) 24 HR Nicotine 0.583 MG/HR Transdermal Patch nicotine 11/25/2019 12:00:00 AM EDT 14 mg/24 completed 533714 nicotine to skin 11/25/2019 02/23/2020 once a day 30 14 mg/24 hr patch 24 hour 26287 [id number] Jessica Richmond [id number] Psych[facility]Mental Health [facility] ([facility]) olanzapine 10 MG Oral Tablet olanzapine 11/25/2019 12:00:00 AM EDT 10 mg by mouth completed 698231 olanzapine by mouth U11092 201901/24/2020 at bedtime 30 10 mg tablet 10324 263210 [id number] Jessicaolimpia Richmond [id number] [facility] ([facility]) lamotrigine 100 MG Oral Tablet lamotrigine 11/25/2019 12:00:00 AM EDT 100 mg by mouth completed 244814 lamotrigine by mouth [id number] 01/24/2020 at bedtime 30 100 mg tablet 55046 011208 [id number] Radu olimpia Richmond [id number] Psych[facility]Mental Health [facility] ([facility]) 24 HR Nicotine 0.583 MG/HR Transdermal Patch nicotine 11/25/2019 12:00:00 AM EDT 14 mg/24 completed [id number] nicotine to skin 11/25/2019 02/23/2020 once a day 30 14 mg/24 hr patch 24 hour 01723 [id number] Jessica Richmond [id number] Psych[facility]Mental Health [facility] ([facility]) Hydroxyzine Pamoate 50 MG Oral Capsule hydroxyzine pamoate 0 10/28/2019 12:00:00 AM EDT 50 mg by mouth completed 961545 hydroxyzine pamoate by mouth [id number] 10/28/2019 three times a day 50 mg capsule as needed 78 656 048011 [id number] Jessica Richmond [id number] [facility] ([facility]) lamotrigine 25 MG Oral Tablet lamotrigine 10/28/2019 12:00:00 AM EDT 25 mg by mouth completed 275465 lamotrigine by mouth E27710 10/2711/25/2019 as directed 25 mg tablet 07066 [id number] Radu Richmond [id number] [facility] ([facility]) olanzapine 15 MG Oral Tablet olanzapine 09/23/2019 12:00:00 AM EDT 15 mg by mouth completed 170700 olanzapine by mouth N38765 201911/25/2019 at bedtime 30 15 mg tablet 63436 263992 [id number] Jessica Richmond [id number] Psych[facility] ([facility]) olanzapine 10 MG Oral Tablet olanzapine 08/26/2019 12:00:00 AM EDT 10 mg completed 351537 olanzapine 08/26/2019 10 mg tab let 29177 [id number] [id number] Jessica Richmond [id number] [facility] ([facility]) Lorazepam 0.5 MG Oral Tablet lorazepam 07/19/2019 12:00:00 AM EDT 0.5 mg by mouth completed lorazepam by mouth G66768 020 three times a day 0.5 mg tablet 67821 606998 [id number] Jessica priest [id number] Psych[facility]Mental Health [facility] ([facility]) aripiprazole 10 MG Oral Tablet aripiprazole 07/11/2019 12:00:00 AM ED T 10 mg by mouth completed 163834 aripiprazole by mouth S12052 0 07/11/2019 once a day 10 mg tablet 67511 218434 [id number] Jessica asher [id number] [facility] ([facility]) Lorazepam 1 MG Oral Tablet lorazepam 07/11/2019 12:00:00 AM EDT 1 mg by mouth completed lorazepam by mouth U33977 07/11/2019 t wice a day 1 mg tablet 35908 453745 [id number] Jessica Richmond [id number] Psych[facility]Mental Health [facility] ([facility]) aripiprazole 10 MG Oral Tablet aripiprazole 07/11/2019 12:00:00 AM ED T 10 mg by mouth completed 097698 aripiprazole by mouth U31065 0 07/11/2019 once a day 10 mg tablet 87845 016919 [id number] Jessica asher [id number] [facility] ([facility]) Lorazepam 1 MG Oral Tablet [Ativan] Ativan 05/02/2019 12:00:00 AM EST 1 mg by mouth completed 952993 Ativan by mouth [id number] 05/02/201905/2019 30 1 mg tablet as directed 23194 903379 [id number] Travis Hua [id number] Psych[facility]Mental Health [facility] ([facility]) Amphetamine aspartate 7.5 MG / Amphetami ne Sulfate 7.5 MG / Dextroamphetamine saccharate 7.5 MG / Dextroamphetamine Sulfate 7.5 MG Oral Tablet [Adderall] Adderall 05/02/2019 12:00:00 AM EST 30 mg by mouth completed 781964 Adderall by mouth I40082 05/02/2019 06/01/2019 twice a day 30 30 mg tablet 38638 902752 [id number] Travis Hua [id number] [facility] ([facility]) Amphetamine aspartate 7.5 MG / Amphetami ne Sulfate 7.5 MG / Dextroamphetamine saccharate 7.5 MG / Dextroamphetamine Sulfate 7.5 MG Oral Tablet [Adderall] Adderall 05/02/2019 12:00:00 AM EST 30 mg by mouth completed 629067 Adderall by mouth P75134 05/02/2019 06/01/2019 twice a day 30 30 mg tablet 93135 834728 [id number] Travis Hua [id number] [facility] ([facility]) Clomipramine Hydrochloride 75 MG Oral Capsule clomipramine 05/02/2019 12:00:00 AM EST 75 mg by mouth completed 702688 clomipramine by mouth [id number] 05/02/2019 06/01/2019 every morning 30 75 mg capsule 43117 1 75799 [id number] Travis Hua [id number] [facility] ([facility]) Lorazepam 1 MG Oral Tablet [Ativan] Ativan 05/02/2019 12:00:00 AM EST 1 mg by mouth completed 825366 Ativan by mouth K54730 05/02/201905/2019 30 1 mg tablet as directed 77700 228565 [id number] Travis Hua [id number] [facility] ([facility]) Clomipramine Hydrochloride 75 MG Oral Capsule clomipramine 05/02/2019 12:00:00 AM EST 75 mg by mouth completed 620570 clomipramine by mouth [id number] 05/02/2019 06/01/2019 every morning 30 75 mg capsule 54493 1 77211 [id number] Travis Hua [id number] [facility] ([facility]) olanzapine 20 MG Oral Tablet olanzapine 04/11/2019 12:00:00 AM EST 20 mg by mouth completed 988660 olanzapine by mouth I18411 201907/01/2019 at bedtime 30 20 mg tablet 75379 516218 [id number] Travis angulo [id number] [facility] ([facility]) olanzapine 20 MG Oral Tablet olanzapine 04/11/2019 12:00:00 AM EST 20 mg by mouth completed 269481 olanzapine by mouth K70003 201906/10/2019 at bedtime 30 20 mg tablet 23201 578600 [id number] Travis angulo [id number] [facility] ([facility]) olanzapine 20 MG Oral Tablet olanzapine 04/11/2019 12:00:00 AM EST 20 mg by mouth completed 470292 olanzapine by mouth H89510 201907/01/2019 at bedtime 30 20 mg tablet 23030 797520 [id number] Travis angulo [id number] [facility] ([facility]) lisdexamfetamine dimesylate 70 MG Oral Capsule [Vyvanse] Vyv anse 04/11/2019 12:00:00 AM EST 70 mg by mouth completed 607266 Vy vanse by mouth [id number] 04/11/2019 05/02/2019 every morning 30 70 mg capsule 67687 [id number] Travis Hua [id number] [facility] ([facility]) Lorazepam 1 MG Oral Tablet [Ativan] Ativan 04/11/2019 12:00:00 AM EST 1 mg by mouth completed 087547 Ativan by mouth [id number] 04/11/2019 05/11/2019 three times a day 30 1 mg tablet 69599 683708 [id number] Travis Hua [id number] [facility] ([facility]) lisdexamfetamine dimesylate 70 MG Oral Capsule [Vyvanse] Vyv anse 04/11/2019 12:00:00 AM EST 70 mg by mouth completed 032007 Vy vanse by mouth [id number] 04/11/2019 05/11/2019 every morning 30 70 mg capsule 42375 560840 [id number] Travis Hua [id number] [facility] ([facility]) Lorazepam 1 MG Oral Tablet [Ativan] Ativan 04/11/2019 12:00:00 AM EST 1 mg by mouth completed 628505 Ativan by mouth [id number] 04/11/2019 05/11/2019 three times a day 30 1 mg tablet 63896 525210 [id number] Travis Hua [id number] [facility] ([facility]) Lorazepam 1 MG Oral Tablet [Ativan] Ativan 04/11/2019 12:00:00 AM EST 1 mg by mouth completed 368890 Ativan by mouth [id number] 04/11/2019 04/11/2019 three times a day 30 1 mg tablet 91887 186281 [id number] Travis Hua [id number] Psych[facility] ([facility]) lisdexamfetamine dimesylate 70 MG Oral Capsule [Vyvanse] Vyv anse 04/11/2019 12:00:00 AM EST 70 mg by mouth completed 613961 Vy vanse by mouth [id number] 04/11/2019 05/11/2019 every morning 30 70 mg capsule 04816 095338 [id number] Travis Hua [id number] [facility] ([facility]) Lorazepam 1 MG Oral Tablet [Ativan] Ativan 04/11/2019 12:00:00 AM EST 1 mg by mouth completed 494513 Ativan by mouth [id number] 04/11/2019 05/02/2019 three times a day 30 1 mg tablet 41886 023602 [phone] Travis Hua [id number] [facility] ([facility]) Amphetamine aspartate 7.5 MG / Amphetami ne Sulfate 7.5 MG / Dextroamphetamine saccharate 7.5 MG / Dextroamphetamine Sulfate 7.5 MG Oral Tablet dextroamphetamine-amphetamine 03/26/2019 12:00:00 AM EST 30 mg by mouth completed 664012 dextroamphetamine-amphetamine by mouth [id number] 03/26/2019 04/11/2019 twice a day 30 30 mg tablet 14950 215628 [id number] Latanya Hua [id number] [facility] ([facility]) Lorazepam 2 MG Oral Tablet [Ativan] Ativan 03/19/2019 12:00:00 AM EST 2 mg by mouth completed 018699 Ativan by mouth [id number] 03/19/2019 04/11/2019 twice a day 14 2 mg tablet 30311 603724 [id number] Benitez Guadarrama [id number] Psychiatry [facility] ([facility]) Temazepam 15 MG Oral Capsule temazepam 03/18/2019 12:00:00 AM EST 15 mg by mouth completed [id number] temazepam by mouth W02472 020 04/11/2019 at bedtime 30 15 mg capsule 02053 164515 [id number] Travis elias [id number] [facility] ([facility]) Temazepam 15 MG Oral Capsule temazepam 02/15/2019 12:00:00 AM EST 15 mg by mouth completed [id number] temazepam by mouth [id number] 019 03/17/2019 at bedtime 30 15 mg capsule 19108 100527 [id number] Travis elias [id number] [facility] ([facility]) Temazepam 15 MG Oral Capsule temazepam 02/15/2019 12:00:00 AM EST 15 mg by mouth completed [id number] temazepam by mouth [id number] 019 03/17/2019 at bedtime 30 15 mg capsule 59053 [id number] Travis elias [id number] [facility] ([facility]) Clomipramine Hydrochloride 75 MG Oral Capsule clomipramine 02/15/2019 12:00:00 AM EST 75 mg by mouth completed 719810 clomipramine by mouth U11053 02/15/2019 06/10/2019 every morning 30 75 mg capsule 47308 1 [id number] [id number] Travis Melita [id number] [facility] ([facility]) Clomipramine Hydrochloride 75 MG Oral Capsule clomipramine 02/15/2019 12:00:00 AM EST 75 mg by mouth completed 204358 clomipramine by mouth [id number] 02/15/2019 06/10/2019 every morning 30 75 mg capsule 36031 1 86832 [id number] Travis Melita [id number] [facility] ([facility]) Clomipramine Hydrochloride 75 MG Oral Capsule clomipramine 02/15/2019 12:00:00 AM EST 75 mg by mouth completed 884568 clomipramine by mouth [id number] 02/15/2019 04/16/2019 every morning 30 75 mg capsule 51887 1 74206 [id number] Travis Hua [id number] [facility] ([facility]) Amphetamine aspartate 7.5 MG / Amphetami ne Sulfate 7.5 MG / Dextroamphetamine saccharate 7.5 MG / Dextroamphetamine Sulfate 7.5 MG Oral Tablet dextroamphetamine-amphetamine 01/01/2019 12:00:00 AM EST 30 mg by mouth completed 259321 dextroamphetamine-amphetamine by mouth [id number] 01/01/2019 01/31/2019 twice a day 30 30 mg tablet 96826 012318 [id number] [facility] [id number] [facility] ([facility]) Amphetamine aspartate 7.5 MG / Amphetami ne Sulfate 7.5 MG / Dextroamphetamine saccharate 7.5 MG / Dextroamphetamine Sulfate 7.5 MG Oral Tablet dextroamphetamine-amphetamine 01/01/2019 12:00:00 AM EST 30 mg by mouth completed 977312 dextroamphetamine-amphetamine by mouth F31568 01/01/2019 02/27/2019 twice a day 30 30 mg tablet 17323 989358 [id number] omas Hathorne [id number] [facility] ([facility]) Amphetamine aspartate 7.5 MG / Amphetami ne Sulfate 7.5 MG / Dextroamphetamine saccharate 7.5 MG / Dextroamphetamine Sulfate 7.5 MG Oral Tablet dextroamphetamine-amphetamine 01/01/2019 12:00:00 AM EST 30 mg by mouth completed 632940 dextroamphetamine-amphetamine by mouth [id number] 01/01/2019 03/17/2019 twice a day 30 30 mg tablet 17877 553540 [id number] omas Melita [id number] [facility] ([facility]) Fluoxetine 20 MG Oral Capsule fluoxetine 01/01/2019 12:00:00 AM EST 20 mg by mouth completed 016789 fluoxetine by mouth O79351 201804/16/2019 every morning 30 20 mg capsule 61141 350561 [id number] Graeme as Hathorne [id number] [facility] ([facility]) Amphetamine aspartate 7.5 MG / Amphetami ne Sulfate 7.5 MG / Dextroamphetamine saccharate 7.5 MG / Dextroamphetamine Sulfate 7.5 MG Oral Tablet dextroamphetamine-amphetamine 01/01/2019 12:00:00 AM EST 30 mg by mouth completed 010212 dextroamphetamine-amphetamine by mouth [id number] 01/01/2019 03/17/2019 twice a day 30 30 mg tablet 47859 403267 [id number] [facility] Hathorne [id number] Psych[facility] Health [facility] ([facility]) Lorazepam 2 MG Oral Tablet [Ativan] Ativan 01/01/2019 12:00:00 AM EST 2 mg by mouth completed 439108 Ativan by mouth [id number] 01/01/2019 02/04/2019 twice a day 7 2 mg tablet 17831 639466 [id number] Travis elias [id number] [facility] ([facility]) Fluoxetine 20 MG Oral Capsule fluoxetine 01/01/2019 12:00:00 AM EST 20 mg by mouth completed 863925 fluoxetine by mouth [id number] 201803/02/2019 every morning 30 20 mg capsule 87893 313374 [id number] [facility] as Melita [id number] Psych[facility]Mental Health [facility] ([facility]) Fluoxetine 20 MG Oral Capsule fluoxetine 01/01/2019 12:00:00 AM EST 20 mg by mouth completed 552014 fluoxetine by mouth W45385 201804/11/2019 every morning 30 20 mg capsule 23040 278710 [id number] Graeme as Melita [id number] [facility] ([facility]) Fluoxetine 20 MG Oral Capsule fluoxetine 01/01/2019 12:00:00 AM EST 20 mg by mouth completed 678427 fluoxetine by mouth B31021 201803/02/2019 every morning 30 20 mg capsule 33026 437738 [id number] Graeme as Melita [id number] [facility] ([facility]) Fluoxetine 20 MG Oral Capsule fluoxetine 01/01/2019 12:00:00 AM EST 20 mg by mouth completed 897484 fluoxetine by mouth [id number] 201803/02/2019 every morning 30 20 mg capsule 32013 133242 [id number] Graeme as Hathorne [id number] [facility] ([facility]) 24 HR Nicotine 0.875 MG/HR Transdermal Patch nicotine 12/11/2018 12:00:00 AM EDT 21 mg/24 completed nicotine to skin 12/11/2018 05/10/2019 once a day 30 21 mg/24 hr patch 24 hour as directed 58490 107 709 [id number] Travis Hua [id number] [facility] ([facility]) 24 HR Nicotine 0.875 MG/HR Transdermal Patch nicotine 12/11/2018 12:00:00 AM EDT 21 mg/24 completed nicotine to skin 12/11/2018 05/10/2019 once a day 30 21 mg/24 hr patch 24 hour as directed 31147 107 709 [id number] Travis Hua [id number] [facility] ([facility]) 24 HR Nicotine 0.875 MG/HR Transdermal Patch nicotine 12/11/2018 12:00:00 AM EDT 21 mg/24 completed nicotine to skin 12/11/2018 04/11/2019 once a day 30 21 mg/24 hr patch 24 hour as directed [id number] Travis Hua [id number] [facility] ([facility]) 24 HR Nicotine 0.875 MG/HR Transdermal Patch nicotine 12/11/2018 12:00:00 AM EDT 21 mg/24 completed nicotine to skin 12/11/2018 05/10/2019 once a day 30 21 mg/24 hr patch 24 hour as directed [id number] Travis Hua [id number] [facility] ([facility]) 24 HR Nicotine 0.875 MG/HR Transdermal Patch nicotine 12/11/2018 12:00:00 AM EDT 21 mg/24 completed nicotine to skin 12/11/2018 05/10/2019 once a day 30 21 mg/24 hr patch 24 hour as directed [id number] 107 [id number] Travis Hua [id number] [facility] ([facility]) olanzapine 20 MG Oral Tablet olanzapine 12/11/2018 12:00:00 AM EDT 20 mg by mouth completed [id number] olanzapine by mouth [id number] 201801/31/2019 at bedtime 30 20 mg tablet [id number] Travis angulo [id number] [facility] ([facility]) 24 HR Nicotine 0.875 MG/HR Transdermal Patch nicotine 12/11/2018 12:00:00 AM EDT 21 mg/24 completed nicotine to skin 12/11/2018 05/10/2019 once a day 30 21 mg/24 hr patch 24 hour as directed [id number] 107 709 [id number] Travis Hua [id number] [facility] ([facility]) 24 HR Nicotine 0.875 MG/HR Transdermal Patch nicotine 12/11/2018 12:00:00 AM EDT 21 mg/24 completed nicotine to skin 12/11/2018 05/10/2019 once a day 30 21 mg/24 hr patch 24 hour as directed [id number] 107 [id number] [id number] Travis Hua [id number] [facility] ([facility]) Insurance Providers Payer name Policy type / Coverage type Policy ID Covered republican ID Covered republican's relationship to burgos Policy [place] Plan Information HUMANA GOLD [id number] SP [id number] HUMANA GOLD O [id number] S [id number] Medicare S [id number] S [id number] A [employer] P [id number] S [id number] [employer] GOLD [id number] SP [id number] MEDICAID [id number] MEDICARE [id number] SP [id number] A SELF PAY ONLY [id number] SP [id number] Medicare S [id number] S [id number] A [facility] O [id number] S [id number] [facility] DEPT [id number] SP [id number] Medicare P [id number] S [id number] A Medicare (Part B) Medicare Primary [id number] Self [id number] Self Pay P UNAVAILABLE S UNAVAILA BLE Managed Care - Community Plan [facility] P [id number] S [id number] Medicaid S [id number] S [id number] [facility] COMMUNITY PLAN [facility] [id number] SP [id number] [facility] O [id number] S [id number] [facility] Health Maintenance Organization (HMO) Self [facility] JAREN [id number] SP [id number] [facility] [id number] SP [id number] [facility] [id number] SP [id number] [employer] (MVP) [id number] SP [id number] SELF PAY UNAVAILABLE UNAVAILA BLE [facility] [id number] SP [id number] [facility] PHY [id number] SP [id number] [facility] [id number] SP [id number] Problems, Conditions, and Diagnoses Code Display Name Description Problem Type Effective Dates Data Source(s) F17.210 Nicotine dependence, cigarettes, uncompl icated Nicotine dependence, cigarettes, uncomplicated Condition 03/24/2020 12:00:00 AM EST [facility] ([facility]) F12.10 Cannabis abuse, uncomplicated Cannabis Use Disorder, M ild Condition 03/24/2020 12:00:00 AM EST [facility] ([facility]) F25.0 Schizoaffective disorder, bipolar type S chizoaffective Disorder, Bipolar type Condition 03/24/2020 12:00:00 AM EST [facility] ([facility]) F42.2 Mixed obsessional thoughts and acts Obsessive-Co mpulsive Disorder Condition 03/24/2020 12:00:00 AM EST [facility] ([facility]) F17.210 Nicotine dependence, cigarettes, uncompl icated Nicotine dependence, cigarettes, uncomplicated Condition 01/31/2020 12:00:00 AM EST [facility] ([facility]) F12.10 Cannabis abuse, uncomplicated Cannabis Use Disorder, M ild Condition 01/31/2020 12:00:00 AM EST [facility] ([facility]) F90.2 Attention-deficit hyperactivity disorder , combined type Attention- Deficit/Hyperactivity Disorder, Combined presentation Condition 01/31/2020 12:00:00 AM EST [facility] ([facility]) F25.0 Schizoaffective disorder, bipolar type S chizoaffective Disorder, Bipolar type Condition 01/31/2020 12:00:00 AM EST [facility] ([facility]) F20.0 Paranoid schizophrenia Paranoid schizophrenia Conditio n 01/31/2020 12:00:00 AM EST [facility] ([facility]) Surgeries/Procedures Procedure Description Date Indications Data Source(s) [facility] [place] E/M Lvl 3--Est pt 03/24/2020 12:00:00 AM EST - 03/24/2020 12:00:00 AM EST [facility] ([facility]) Telemed A/O 30" 03/24/2020 12:00:00 AM EST [facility] ([facility]) [facility] [place] E/M Lvl 3--Est pt 03/24/2020 12:00:[address] [facility] ([facility]) PHYSICIAN TELEPHONE EVALUATION 11-20 MIN 03/12/2020 12:00:00 AM EST - 03/12/2020 12:00:00 AM EST [facility] ([facility]) PHYSICIAN TELEPHONE EVALUATION 11-20 MIN 03/09/2020 12 :00:00 AM EST [facility] ([facility]) [facility] Telemed E/M Lvl 3--Est pt 03/03/2020 12:00:00 AM EST - 03/03/2020 12:00:00 AM EST [facility] ([facility]) Telemed A/O 30" 03/03/2020 12:00:00 AM EST [facility] ([facility]) [facility] Telemed E/M Lvl 3--Est pt 03/03/2020 12:00:[address] [facility] ([facility]) MHC Telemed E/M Lvl 3--Est pt 01/31/2020 12:00:00 AM EST - 01/31/2020 12:00:00 AM EST [facility] ([facility]) Telemed A/O 30" 01/31/2020 12:00:00 AM EST [facility] ([facility]) MHC Telemed E/M Lvl 3--Est pt 01/31/2020 12:00:[address] [facility] ([facility]) MHC Telemed E/M Lvl 3--Est pt 01/10/2020 12:00:00 AM EST - 01/10/2020 12:00:00 AM EST [facility] ([facility]) Telemed A/O 30" 01/10/2020 12:00:00 AM EST [facility] ([facility]) MHC Telemed E/M Lvl 3--Est pt 01/10/2020 12:00:[address] [facility] ([facility]) MHC Telemed E/M Lvl 3--Est pt 11/25/2019 12:00:00 AM EDT - 11/25/2019 12:00:00 AM EDT [facility] ([facility]) Telemed A/O 30" 11/25/2019 12:00:00 AM EDT [facility] ([facility]) MHC Telemed E/M Lvl 3--Est pt 11/25/2019 12:00:00 AM E DT [facility] ([facility]) MHC Telemed E/M Lvl 3--Est pt 08/26/2019 12:00:00 AM EDT - 08/26/2019 12:00:00 AM EDT [facility] ([facility]) Telemed A/O 30" 08/26/2019 12:00:00 AM EDT [facility] ([facility]) MHC Telemed E/M Lvl 3--Est pt 08/26/2019 12:00:00 AM E DT [facility] ([facility]) MHC Telemed E/M Lvl 3--Est pt 07/11/2019 12:00:00 AM EDT - 07/11/2019 12:00:00 AM EDT [facility] ([facility]) Telemed A/O 30" 07/11/2019 12:00:00 AM EDT [facility] ([facility]) MHC Telemed E/M Lvl 3--Est pt 07/11/2019 12:00:00 AM E DT [facility] ([facility]) MHC Telemed E/M Lvl 3--Est pt 05/27/2019 12:00:00 AM EDT - 05/27/2019 12:00:00 AM EDT [facility] ([facility]) Telemed A/O 30" 05/27/2019 12:00:00 AM EDT [facility] ([facility]) MHC Telemed E/M Lvl 3--Est pt 05/27/2019 12:00:00 AM E DT [facility] ([facility]) OFFICE OUTPATIENT VISIT 10 MINUTES 05/08 12:00:00 AM EDT - 05/09/2019 12:00:00 AM EDT [facility] ([facility]) OFFICE OUTPATIENT VISIT 10 MINUTES 05/09/2019 12:00:00 AM EDT [facility] ([facility]) OFFICE OUTPATIENT VISIT 10 MINUTES 05/01 12:00:00 AM EST - 05/02/2019 12:00:00 AM EST [facility] ([facility]) OFFICE OUTPATIENT VISIT 10 MINUTES 05/02/2019 12:00:00 AM EST [facility] ([facility]) OFFICE OUTPATIENT VISIT 10 MINUTES 04/24 12:00:00 AM EST - 04/24/2019 12:00:00 AM EST [facility] ([facility]) OFFICE OUTPATIENT VISIT 10 MINUTES 04/24/2019 12:00:00 AM EST [facility] ([facility]) OFFICE OUTPATIENT VISIT 10 MINUTES 04/11 12:00:00 AM EST - 04/11/2019 12:00:00 AM EST [facility] ([facility]) OFFICE OUTPATIENT VISIT 10 MINUTES 04/11/2019 12:00:00 AM EST [facility] ([facility]) OFFICE OUTPATIENT VISIT 10 MINUTES 03/14 12:00:00 AM EST - 03/14/2019 12:00:00 AM EST [facility] ([facility]) OFFICE OUTPATIENT VISIT 10 MINUTES 03/14/2019 12:00:00 AM EST [facility] ([facility]) OFFICE OUTPATIENT VISIT 10 MINUTES 02/15 12:00:00 AM EST - 02/15/2019 12:00:00 AM EST [facility] ([facility]) OFFICE OUTPATIENT VISIT 10 MINUTES 02/15/2019 12:00:00 AM EST [facility] ([facility]) OFFICE OUTPATIENT VISIT 15 MINUTES 02/04 12:00:00 AM EST - 02/04/2019 12:00:00 AM EST [facility] ([facility]) OFFICE OUTPATIENT VISIT 15 MINUTES 02/04/2019 12:00:00 AM EST [facility] ([facility]) Results ID Date Data Source [id number] 03/09/2020 02:04:00 PM EST [facility]ENN[facility] ([facility]) Name Value Range Interpretation Code Description Data Dyan rce(s) Supporting Document(s) sars-cov-2 negative negative normal Sars-cov-2 [facility] ([facility]) ID Date Data Source [id number] 03/09/2020 01:03:00 PM EST [facility] Name Value Range Interpretation Code Description Data Dyan rce(s) Supporting Document(s) SARS coronavirus 2 RdRp gene [Presence] in Respiratory specimen by RUBIO with probe detection Not detected [facility] This lab was ordered by [facility] and reported by [facility]. Procedure Social History Code Duration Value Status Description Data Source(s ) Smoking 03/24/2020 12:00:00 AM EST Current every day smoker co mpleted Current every day smoker [facility] ([facility]) Smoking 03/12/2020 12:00:00 AM EST Current every day smoker co mpleted Current every day smoker [facility] ([facility]) Smoking 03/03/2020 12:00:00 AM EST Current every day smoker co mpleted Current every day smoker [facility] ([facility]) Smoking 01/31/2020 12:00:00 AM EST Current every day smoker co mpleted Current every day smoker [facility] ([facility]) Smoking 01/10/2020 12:00:00 AM EST Current every day smoker co mpleted Current every day smoker [facility] ([facility]) Smoking 11/25/2019 12:00:00 AM EDT Current every day smoker co mpleted Current every day smoker [facility] ([facility]) Smoking 08/26/2019 12:00:00 AM EDT Current every day smoker co mpleted Current every day smoker [facility] ([facility]) Smoking 07/11/2019 12:00:00 AM EDT Current every day smoker co mpleted Current every day smoker [facility] ([facility]) Smoking 05/27/2019 12:00:00 AM EDT Current every day smoker co mpleted Current every day smoker [facility] ([facility]) Smoking 05/09/2019 12:00:00 AM EDT Current every day smoker co mpleted Current every day smoker [facility] ([facility]) Smoking 05/02/2019 12:00:00 AM EST Current every day smoker co mpleted Current every day smoker [facility] ([facility]) Smoking 04/24/2019 12:00:00 AM EST Current every day smoker co mpleted Current every day smoker [facility] ([facility]) Smoking 04/11/2019 12:00:00 AM EST Current every day smoker co mpleted Current every day smoker [facility] ([facility]) Smoking 03/14/2019 12:00:00 AM EST Current every day smoker co mpleted Current every day smoker [facility] ([facility]) Smoking 02/15/2019 12:00:00 AM EST Current every day smoker co mpleted Current every day smoker [facility] ([facility]) Smoking 02/04/2019 12:00:00 AM EST Current every day smoker co mpleted Current every [facility]) Vital Signs ID Date Data Source UNK Name Value Range Interpretation Code Description Data Source(s) Diastolic blood pressure 0 mm[Hg] Normal (applies to non-numeric results) 0 mm[Hg] [facility] ([facility]) Systolic blood pressure 0 mm[Hg] Normal (applies t o non-numeric results) 0 mm[Hg] [facility] ([facility]) Body mass index (BMI) [Ratio] 0.00 kg/m2 No rmal (applies to non-numeric results) 0.00 kg/m2 [facility] ([facility]) Body weight Measured 0.00 lbs Normal (applies to n on-numeric results) 0.[address] [facility] ([facility]) Body height 0.00 in Normal (applies to non-numeric resu lts) 0.[address] [facility] ([facility]) Diastolic blood pressure 0 mm[Hg] Normal (applies to non-numeric results) 0 mm[Hg] [facility] ([facility]) Systolic blood pressure 0 mm[Hg] Normal (applies t o non-numeric results) 0 mm[Hg] [facility] ([facility]) Body mass index (BMI) [Ratio] 0.00 kg/m2 No rmal (applies to non-numeric results) 0.00 kg/m2 [facility] ([facility]) Body weight Measured 0.00 lbs Normal (applies to n on-numeric results) 0.00 lbs [facility] ([facility]) Body height 0.00 in Normal (applies to non-numeric resu lts) 0.00 in [facility] ([facility]) Diastolic blood pressure 0 mm[Hg] Normal (applies to non-numeric results) 0 mm[Hg] [facility] ([facility]) Systolic blood pressure 0 mm[Hg] Normal (applies t o non-numeric results) 0 mm[Hg] [facility] ([facility]) Body mass index (BMI) [Ratio] 0.00 kg/m2 No rmal (applies to non-numeric results) 0.00 kg/m2 [facility] ([facility]) Body weight Measured 0.00 lbs Normal (applies to n on-numeric results) 0.00 lbs [facility] ([facility]) Body height 0.00 in Normal (applies to non-numeric resu lts) 0.00 in [facility] ([facility]) Diastolic blood pressure 0 mm[Hg] Normal (applies to non-numeric results) 0 mm[Hg] [facility] ([facility]) Systolic blood pressure 0 mm[Hg] Normal (applies t o non-numeric results) 0 mm[Hg] [facility] ([facility]) Body mass index (BMI) [Ratio] 0.00 kg/m2 No rmal (applies to non-numeric results) 0.00 kg/m2 [facility] ([facility]) Body weight Measured 0.00 lbs Normal (applies to n on-numeric results) [facility] Body height 0.00 in Normal (applies to non-numeric resu lts) 0.00 in [facility] ([facility]) Diastolic blood pressure 0 mm[Hg] Normal (applies to non-numeric results) 0 mm[Hg] [facility] ([facility]) Systolic blood pressure 0 mm[Hg] Normal (applies t o non-numeric results) 0 mm[Hg] [facility] ([facility]) Body mass index (BMI) [Ratio] 0.00 kg/m2 No rmal (applies to non-numeric results) 0.00 kg/m2 [facility] ([facility]) Body weight Measured 0.00 lbs Normal (applies to n on-numeric results) 0.00 lbs [facility] ([facility]) Body height 0.00 in Normal (applies to non-numeric resu lts) 0.00 in [facility] ([facility]) Body height 0.00 in Normal (applies to non-numeric resu lts) 0.00 in [facility] ([facility]) Diastolic blood pressure 0 mm[Hg] Normal (applies to non-numeric results) 0 mm[Hg] [facility] ([facility]) Systolic blood pressure 0 mm[Hg] Normal (applies t o non-numeric results) 0 mm[Hg] [facility] ([facility]) Body mass index (BMI) [Ratio] 0.00 kg/m2 No rmal (applies to non-numeric results) 0.00 kg/m2 [facility] ([facility]) Body weight Measured 0.00 lbs Normal (applies to n on-numeric results) 0.00 lbs [facility] ([facility]) Diastolic blood pressure 0 mm[Hg] Normal (applies to non-numeric results) 0 mm[Hg] [facility] ([facility]) Systolic blood pressure 0 mm[Hg] Normal (applies t o non-numeric results) 0 mm[Hg] [facility] ([facility]) Body mass index (BMI) [Ratio] 0.00 kg/m2 No rmal (applies to non-numeric results) 0.00 kg/m2 [facility] ([facility]) Body weight Measured 0.00 lbs Normal (applies to n on-numeric results) 0.00 lbs [facility] ([facility]) Body height 0.00 in Normal (applies to non-numeric resu lts) 0.00 in [facility] ([facility]) Diastolic blood pressure 0 mm[Hg] Normal (applies to non-numeric results) 0 mm[Hg] [facility] ([facility]) Systolic blood pressure 0 mm[Hg] Normal (applies t o non-numeric results) 0 mm[Hg] [facility] ([facility]) Body mass index (BMI) [Ratio] 0.00 kg/m2 No rmal (applies to non-numeric results) 0.00 kg/m2 [facility] ([facility]) Body weight Measured 0.00 lbs Normal (applies to n on-numeric results) 0.00 lbs [facility] ([facility]) Body height 0.00 in Normal (applies to non-numeric resu lts) 0.00 in [facility] ([facility]) Diastolic blood pressure 0 mm[Hg] Normal (applies to non-numeric results) 0 mm[Hg] [facility] ([facility]) Systolic blood pressure 0 mm[Hg] Normal (applies t o non-numeric results) 0 mm[Hg] [facility] ([facility]) Body mass index (BMI) [Ratio] 0.00 kg/m2 No rmal (applies to non-numeric results) 0.00 kg/m2 [facility] ([facility]) Body weight Measured 0.00 lbs Normal (applies to n on-numeric results) 0.00 lbs [facility] ([facility]) Body height 0.00 in Normal (applies to non-numeric resu lts) 0.00 in [facility] ([facility]) Diastolic blood pressure 0 mm[Hg] Normal (applies to non-numeric results) 0 mm[Hg] [facility] ([facility]) Systolic blood pressure 0 mm[Hg] Normal (applies t o non-numeric results) 0 mm[Hg] [facility] ([facility]) Body mass index (BMI) [Ratio] 0.00 kg/m2 No rmal (applies to non-numeric results) 0.00 kg/m2 [facility] ([facility]) Body weight Measured 0.00 lbs Normal (applies to n on-numeric results) 0.[address] [facility] ([facility]) Body height 0.00 in Normal (applies to non-numeric resu lts) 0.[address] [facility] ([facility]) Diastolic blood pressure 0 mm[Hg] Normal (applies to non-numeric results) 0 mm[Hg] [facility] ([facility]) Systolic blood pressure 0 mm[Hg] Normal (applies t o non-numeric results) 0 mm[Hg] [facility] ([facility]) Body mass index (BMI) [Ratio] 0.00 kg/m2 No rmal (applies to non-numeric results) 0.00 kg/m2 [facility] ([facility]) Body weight Measured 0.00 lbs Normal (applies to n on-numeric results) 0.[address] [facility] ([facility]) Body height 0.00 in Normal (applies to non-numeric resu lts) 0.[address] [facility] ([facility])
[2020-03-29 16:00] VITALS: BP 158/97
--- NOTE | 2020-03-29 21:03 | ECGEPIP ---
[facility] - ED Test Date: 2020-03-29 Pat Name: ROSALEE GIRALDO Department: Room: - Gender: Male [employer] Technician: VINCENT : 1985 Requested By: Keon Roach Order Number: [id number] [place] MD: Jessa Michaels Measurements Intervals [place] Rate: 105 P: 25 [place]: 150 QRS: -11 QRSD: 92 T: 31 QT: 332 QTc: 440 Interpretive Statements SINUS TACHYCARDIA NONSPECIFIC T-WAVE ABNORMALITY ABNORMAL RHYTHM ECG increased rate 02/16/20 Electronically Signed on 03-29-2020 21:02:52 EST by Jessa Michaels
== END 2020-03-29 16:25 | disposition home or self-care (01) ==
LOC: M ED 14:05
DX: F45.9 Somatoform disorder, unspecified (principal); R00.0 Tachycardia, unspecified; R94.31 Abnormal electrocardiogram [ECG] [EKG]; F41.9 Anxiety disorder, unspecified; F31.9 Bipolar disorder, unspecified; F25.9 Schizoaffective disorder, unspecified

== ENCOUNTER → 2020-05-13 | Outpatient (REF) | payer OTHER ==
[~2020-05-13] MED LIST changes: +LAMO100T3; +QUET200T2; +SERT50TA29
[2020-05-13 18:18] LABS: HEMOGLOBIN A1c 5.1 %
[2020-05-13 18:37] LABS: ALBUMIN 4.6 GM/DL (3.2-5.2); ALT/SGPT 42 U/L (12-78); BILIRUBIN,TOTAL 0.4 MG/DL (0.2-1.0); BLOOD UREA NITROGEN 20 MG/DL (7-18); CALCIUM LEVEL 9.7 MG/DL (8.5-10.1); CARBON DIOXIDE LEVEL 28 MEQ/L (21-32); CHLORIDE LEVEL 103 MEQ/L (98-107); CHOLESTEROL LEVEL 184 MG/DL (<200); CHOLESTEROL RISK RATIO 3.345 (<5); GLOMERULAR FILTRATION RATE > 60.0 (>60); GLUCOSE, FASTING 82 MG/DL (70-100); HDL CHOLESTEROL 55 MG/DL (>40); LDL CHOLESTEROL 109 MG/DL (<100); NON-HDL-C 129 MG/DL; POTASSIUM SERUM 4.7 MEQ/L (3.5-5.1); SODIUM LEVEL 137 MEQ/L (136-145); TOTAL PROTEIN 7.8 GM/DL (6.4-8.2); TRIGLYCERIDES LEVEL 99 MG/DL (<150)
== END ==
LOC: M LAB REF 16:24
PROVIDERS: ATTEND Physician Assistant
DX: J35.8 Other chronic diseases of tonsils and adenoids (principal); Z79.899 Other long term (current) drug therapy

== ENCOUNTER 2020-05-30 22:21 | Emergency (ER) | payer OTHER ==
[~2020-05-30] VITALS: Ht 175.3 cm; Wt 94.6 kg
[2020-05-30] MEDS ORDERED: HYDR-3713 PO (23:10)
--- NOTE | 2020-05-30 23:30 | REPVR ---
PROCEDURE INFORMATION: Exam: US Abdomen; Limited Exam date and time: 05/30/2020 10:54 PM Age: 34 years old Clinical indication: Abdominal pain; Periumbilical; Additional info: R/O umbilical hernia TECHNIQUE: Imaging protocol: US abdomen. Real time ultrasound with image documentation. Limited exam focused on the region of clinical interest. COMPARISON: No relevant prior studies available. FINDINGS: Soft tissues: Nonreducible fat containing supraumbilical hernia, measuring approximately 8 mm at the neck. IMPRESSION: Nonreducible fat containing supraumbilical hernia, as above. Electronically signed by: Kole Gilbert On 05/30/2020 23:30:02 PM
[2020-05-30 23:56] VITALS: BP 125/77
== END 2020-05-31 | disposition home or self-care (01) ==
LOC: M ED 22:21
DX: K42.9 Umbilical hernia without obstruction or gangrene (principal); Z87.891 Personal history of nicotine dependence

== ENCOUNTER 2020-06-02 09:21 | Emergency (ER) | payer OTHER ==
[~2020-06-02] VITALS: Ht 170.2 cm; Wt 92.2 kg
[~2020-06-02 09:21] MED LIST changes: +HYDR-3713 PO
[2020-06-02 11:17] LABS: BASO % 0.7 % (0.0-1.0); EOS # 0.2 10^3/uL (0.0-0.5); EOS % 3.2 % (0.0-3.0); HEMATOCRIT 41.7 % (42.0-52.0); HEMOGLOBIN 14.2 g/dl (13.5-17.5); LYMPH # 1.1 10^3/uL (1.5-5.0); LYMPH % 19.3 % (24.0-44.0); MEAN CORPUSCULAR HEMOGLOBIN 31.5 pg (27.0-33.0); MEAN CORPUSCULAR HGB CONC 34.1 g/dl (32.0-36.5); MEAN CORPUSCULAR VOLUME 92.5 fl (80.0-96.0); MONO # 0.5 10^3/uL (0.0-0.8); MONO % 8.8 % (2.0-8.0); NEUTROPHILS % 67.8 % (36.0-66.0); PLATELET COUNT, AUTOMATED 261 10^3/uL (150-450); RED BLOOD COUNT 4.51 10^6/uL (4.30-6.10); WHITE BLOOD COUNT 5.9 10^3/uL (4.0-10.0)
[2020-06-02] MEDS ORDERED: CEPH500T PO (11:43)
[2020-06-02 11:44] LABS: ALBUMIN 4.3 GM/DL (3.2-5.2); BILIRUBIN,DIRECT 0.1 MG/DL (0.0-0.2); BILIRUBIN,TOTAL 0.5 MG/DL (0.2-1.0); TOTAL PROTEIN 7.1 GM/DL (6.4-8.2)
[2020-06-02 12:07] VITALS: BP 136/74
== END 2020-06-02 12:09 | disposition home or self-care (01) ==
LOC: M ED 09:21
DX: K42.9 Umbilical hernia without obstruction or gangrene (principal); R19.8 Other specified symptoms and signs involving the digestive system and abdomen; I10 Essential (primary) hypertension

== ENCOUNTER 2020-06-10 12:26 | Emergency (ER) | payer OTHER ==
[~2020-06-10] VITALS: Ht 170.2 cm; Wt 90.2 kg
[~2020-06-10 12:26] MED LIST changes: +CEPH500T PO
[2020-06-10] MEDS ORDERED: CEPH500C PO (12:41)
[2020-06-10 14:20] LABS: BASO % 0.7 % (0.0-1.0); EOS # 0.1 10^3/uL (0.0-0.5); EOS % 2.4 % (0.0-3.0); HEMATOCRIT 42.8 % (42.0-52.0); HEMOGLOBIN 14.4 g/dl (13.5-17.5); LYMPH # 1.4 10^3/uL (1.5-5.0); LYMPH % 23.8 % (24.0-44.0); MEAN CORPUSCULAR HEMOGLOBIN 30.9 pg (27.0-33.0); MEAN CORPUSCULAR HGB CONC 33.6 g/dl (32.0-36.5); MEAN CORPUSCULAR VOLUME 91.8 fl (80.0-96.0); MONO # 0.5 10^3/uL (0.0-0.8); MONO % 8.4 % (2.0-8.0); NEUTROPHILS # 3.8 10^3/uL (1.5-8.5); NEUTROPHILS % 64.4 % (36.0-66.0); PLATELET COUNT, AUTOMATED 281 10^3/uL (150-450); RED BLOOD COUNT 4.66 10^6/uL (4.30-6.10); WHITE BLOOD COUNT 5.8 10^3/uL (4.0-10.0)
[2020-06-10 15:08] LABS: CHLAMYDIA DNA AMPLIFICATION NEGATIVE (NEGATIVE); GC DNA AMPLIFICATION NEGATIVE (NEGATIVE)
[2020-06-10 15:48] VITALS: BP 147/87
[2020-06-10] MEDS ORDERED: METH-1165 PO (15:56)
[2020-06-10] MEDS ORDERED: PYRI1TAB5 PO (15:56)
== END 2020-06-10 16:16 | disposition home or self-care (01) ==
LOC: M ED 12:26
DX: R30.0 Dysuria (principal); R35.0 Frequency of micturition; R39.15 Urgency of urination; R10.9 Unspecified abdominal pain; F25.0 Schizoaffective disorder, bipolar type

== ENCOUNTER → 2020-07-22 | Outpatient (REF) | payer OTHER ==
[~2020-07-22] MED LIST changes: +CEPH500C PO; +GABA-283 PO; -GABA-845 PO; +METH-1165 PO; +PYRI1TAB5 PO
== END ==
LOC: M PLALAB 15:01
PROVIDERS: ATTEND Advanced Practice Midwife
DX: Z01.83 Encounter for blood typing (principal)

== ENCOUNTER → 2022-10-05 | Outpatient (REF) ==
[~2022-10-05] MED LIST changes: -FLUV100T2; +FLUV100T25; -GABA-283 PO; +GABA-284 PO; -HALO5TA PO; +HALO5TAB33 PO
== END ==
LOC: M LAB 13:55
DX: Z02.89 Encounter for other administrative examinations (principal)

== ENCOUNTER 2023-10-24 11:01 | Inpatient (IN) | payer MEDICARE, OTHER, SELFPAY ==
[~2023-10-24] VITALS: Ht 172.7 cm; Wt 88.6 kg
[~2023-10-24 11:01] MED LIST changes: -KLON0.5T PO; +KLON0.5T8 PO; -KLON1TAB PO; +KLON1TAB13 PO; -RISP-11 PO; +RISP4TAB95 PO
[2023-10-24] MEDS ORDERED: L-TH100C2 PO (11:50)
[2023-10-24] MEDS ORDERED: ZOLO25TA PO (11:50)
[2023-10-24 12:00] LABS: HEMATOCRIT 41.7 % (42.0-52.0); HEMOGLOBIN 14.1 g/dl (13.5-17.5); MEAN CORPUSCULAR HEMOGLOBIN 31.8 pg (27.0-33.0); MEAN CORPUSCULAR HGB CONC 33.8 g/dl (32.0-36.5); MEAN CORPUSCULAR VOLUME 94.1 fl (80.0-96.0); PLATELET COUNT, AUTOMATED 315 10^3/uL (150-450); RED BLOOD COUNT 4.43 10^6/uL (4.30-6.10); WHITE BLOOD COUNT 9.4 10^3/uL (4.0-10.0)
[2023-10-24 12:13] LABS: ETHYL ALCOHOL (ETHANOL) < 0.003 % (0.000-0.010)
[2023-10-24 12:15] LABS: ALBUMIN 4.5 G/DL (3.2-5.2); ALKALINE PHOSPHATASE 49 U/L (46-116); ALT/SGPT 15 U/L (7.0-40); AST/SGOT 10 U/L (<34); BILIRUBIN,DIRECT 0.2 MG/DL (<0.4); BILIRUBIN,TOTAL 0.6 MG/DL (0.3-1.2); BLOOD UREA NITROGEN 10 MG/DL (9-23); CARBON DIOXIDE LEVEL 26 MMOL/L (20-31); CHLORIDE LEVEL 108 MMOL/L (98-107); CREATININE FOR GFR 0.79 MG/DL (0.70-1.30); GLOMERULAR FILTRATION RATE > 60.0 (>60); GLUCOSE, FASTING 109 MG/DL (60-100); POTASSIUM SERUM 3.7 MMOL/L (3.5-5.1); SALICYLATE LEVEL < 3.0 MG/DL (<30); SODIUM LEVEL 140 MMOL/L (136-145); TOTAL PROTEIN 7.4 G/DL (5.7-8.2)
[2023-10-24 12:17] LABS: THYROID STIMULATING HORMONE 0.979 uIU/ML (0.55-4.78)
[2023-10-24 12:50] LABS: AMPHETAMINES LEVEL URINE NEGATIVE (NEGATIVE); BARBITURATES URINE NEGATIVE (NEGATIVE); BENZODIAZEPINES URINE NEGATIVE (NEGATIVE); COCAINE METABOLITE URINE NEGATIVE (NEGATIVE); METHADONE URINE NEGATIVE (NEGATIVE); OPIATES URINE NEGATIVE (NEGATIVE); PHENCYCLIDINE URINE NEGATIVE (NEGATIVE)
[2023-10-24 12:53] LABS: CANNABINOIDS URINE POSITIVE (NEGATIVE)
[2023-10-24] MEDS ORDERED: HOME MED LIST COMPLETE! XX SCH (13:50)
[2023-10-24] MEDS ORDERED: traZODone 50 MG TAB PO PRN (15:10)
[2023-10-24] MEDS ORDERED: MOM 30ML SUSPENSION UDC PO PRN (15:10)
[2023-10-24] MEDS ORDERED: MAALOX 30 ML SUSP *UDC PO PRN (15:10)
[2023-10-24] MEDS ORDERED: IBUPROFEN 400MG TAB PO PRN (15:10)
[2023-10-24] MEDS ORDERED: ACETAMINOPHEN TAB 650MG DOSE (2X325MG) PO PRN (15:10)
[2023-10-24 17:07] VITALS: BP 124/74
[2023-10-24] MEDS: OLANZapine ORAL DISINTEGRATING TAB 5MG PO PRN (17:50)
[2023-10-25 06:50] VITALS: BP 128/74; TEMP 95.8; O2SAT 95
[2023-10-25] MEDS: diphenhydrAMINE 25MG CAP PO PRN (10:15)
[2023-10-25 16:15] VITALS: BP 154/86; TEMP 97.7
[2023-10-25] MEDS: LORazepam 1 MG TAB PO PRN (20:05)
[2023-10-26 06:41] VITALS: BP 133/62; TEMP 97.6; O2SAT 100
[2023-10-26] MEDS: SERTRALINE HCL 50 MG TAB PO SCH (08:19)
[2023-10-26 16:52] VITALS: BP 137/82; TEMP 97.8; O2SAT 95
[2023-10-26] MEDS: ARIPiprazole 10 MG TAB PO SCH (20:14)
[2023-10-27 06:25] VITALS: BP 129/78; TEMP 97; O2SAT 100
[2023-10-27] MEDS ORDERED: ABIL10TA9 PO (13:27)
[2023-10-27] MEDS ORDERED: OLAN5ZYD PO (13:27)
[2023-10-27] MEDS ORDERED: TRAZ-252 PO (13:27)
[2023-10-27] MEDS ORDERED: SERT50TA29 PO (13:27)
[2023-10-27 15:56] VITALS: BP 142/82; TEMP 97.7; O2SAT 100
== END 2023-10-27 16:58 | disposition home or self-care (01) | DRG 885 ==
LOC: M ED 11:01 → M ED INP 15:10 → M PSY 16:08
PROVIDERS: ADMIT Psychiatry & Neurology Psychiatry; ATTEND Psychiatry & Neurology Psychiatry
DX: F25.0 Schizoaffective disorder, bipolar type (principal); F12.90 Cannabis use, unspecified, uncomplicated; F43.10 Post-traumatic stress disorder, unspecified; Z87.891 Personal history of nicotine dependence; Z56.0 Unemployment, unspecified; Z81.8 Family history of other mental and behavioral disorders; Z81.1 Family history of alcohol abuse and dependence; Z71.51 Drug abuse counseling and surveillance of drug abuser